=== PATIENT | female | born 1975 | race Caucasian/White ===

== ENCOUNTER 2019-10-20 22:02 | Emergency (ER) | payer BC, SELFPAY ==
--- NOTE | ~2019-10-20 | XR_ITS ---
EXAMINATION: XR chest 1V portable DATE: 10/20/2019 22:48 INDICATION: Cough and fever. Vomiting. TECHNIQUE: A single frontal view of the chest was obtained. COMPARISON: None. FINDINGS: Sensitivity is decreased by obesity. The chest demonstrates clear lungs without pneumonia, pleural effusion, or pneumothorax. The heart size is normal. IMPRESSION: 1. No acute cardiopulmonary disease. Reviewed, dictated and finalized at location A.
[2019-10-20 22:08] VITALS: BP 155/97; PULSE 102; RESP 18; TEMP 36.8; O2SAT 100
[2019-10-20 22:19] VITALS: RESP 18; O2SAT 96
--- NOTE | 2019-10-20 22:44 | WPDEDEXPGENP ---
HPI - General Ped General Chief complaint: Fever Stated complaint: fever, cough, vomiting Time Seen by Provider: 10/20/19 22:14 Source: RN notes reviewed History of Present Illness HPI narrative: Patient presents emergency department from home for cough. Patient states symptoms been ongoing for the past 14 days. has had a cough this been nonproductive. She states that she will go into coughing spells where she will cough nonstop for several minutes. States is been associated with intermittent fever up to 101 with last fever 2 days ago. Patient states over the past 2 days she is also been having vomiting. She denies any rhinorrhea sore throat abdominal pain diarrhea or any other symptoms at this time. Related Data Home Medications Medication Instructions Recorded Confirmed L norgest/e.estradiol-e.estrad 1 tablet PO DAILY 06/21/19 0.10 mg-20 mcg (84)/10 mcg(7) tabs,3mos armodafinil 200 mg tablet 200 mg PO DAILY 06/21/19 cholecalciferol (vitamin D3) 1,250 50,000 unit PO WEEKLY 06/21/19 mcg (50,000 unit) capsule diclofenac sodium 75 mg 75 mg PO BID 06/21/19 tablet,delayed release fenofibrate micronized 134 mg 134 mg PO DAILY 06/21/19 capsule fluticasone propionate 50 2 spray NASAL DAILY 06/21/19 mcg/actuation nasal spray,suspension guanfacine 1 mg tablet 1 mg PO DAILY 06/21/19 levothyroxine 175 mcg tablet 175 mcg PO DAILY 06/21/19 liothyronine 5 mcg tablet 5 mcg PO BID 06/21/19 metformin 500 mg tablet,extended 1,000 mg PO DAILY tablet 06/21/19 release 24 hr hydrochlorothiazide 12.5 mg tablet 12.5 mg PO DAILY 07/31/19 losartan 100 mg tablet 100 mg PO DAILY 07/31/19 carvedilol BID 10/20/19 Allergies Allergy/AdvReac Type Severity Reaction Status Date / Time latex Allergy Severe Hives Verified 10/20/19 22:18 tramadol AdvReac Intermediate SEDATION, Verified 07/31/19 11:00 NAUSEA/VOMITING Pediatric Review of Systems : Review of Systems: Gen.: Denies fevers or chills ENT: Denies congestion Respiratory: Reports cough CV: Denies chest pain or palpitations GI: Denies abdominal pain no diarrhea, reports nausea vomiting denies burning, urgency, frequency or hematuria Musculoskeletal: Denies back pain or muscle pain Neuro: Denies numbness, tingling, weakness or focal weakness Skin: Denies rash Except as documented, all other systems reviewed and negative [facility] Past Medical History Medical History (Updated 10/21/19 @ 02:02 by Patel Lemus DO) Anemia Arthritis Fibromyalgia H/O chronic fatigue syndrome HTN (hypertension) Inflammatory arthritis Migraine Thyroid disease Surgical History Surgical History Delivery by section Hx of cholecystectomy Social History Social History Smoking status: Former smoker Smoking end date: 07/10/10 Alcohol intake: current Pediatric Exam Narrative: Physical exam: APPEARANCE: No acute distress, nontoxic, resting in bed EYES: EOMI HEENT: Normocephalic, atraumatic, OMM RESPIRATORY: No respiratory distress wheezing in the bilateral lung ojeda decreased breath sounds at the bases, no rhonchi or rales CARDIOVASCULAR: Regular rate and rhythm without murmurs rubs or gallops. ABDOMINAL: Soft, nontender, nondistended, no rebound or guarding MUSCULOSKELETAl: Moves all extremities. No clubbing, cyanosis or edema. NEURO: Awake and alert. Following commands, speech normal, no focal deficits SKIN:: Warm, dry. No rashes lesions or abrasions PSYCHIATRIC: Normal affect/mood, Course Course Emergency Course: Patient given albuterol inhaler in ED following this repeat lung exam clear all station bilaterally Discussed with patient results of workup and diagnosis. Discussed need for follow-up with primary care, proper use of medication, and reasons to return to the emergency department. Patient understands and agrees to marguerite
[2019-10-20 23:04] LABS: Basophils Absolute Auto 0.1 K/mm3 (0.0-0.1); Basophils Percent Auto 0.4 % (0.2-1.2); Eosinophils Absolute Auto 0.4 K/mm3 (0-0.3); Eosinophils Percent Auto 3.5 % (0-4.4); Hematocrit 41.1 % (37.0-47.0); Hemoglobin 13.1 g/dL (12.0-15.0); Immature Granulocyte Percent A 0.8 % (0-0.5); Lymphocytes Percent Auto 28.7 % (18.3-44.2); Mean Corpuscular HGB Conc 31.9 g/dl (32-36); Mean Corpuscular Hemoglobin 26.3 pg (26-34); Mean Corpuscular Volume 82.5 fl (80-100); Mean Platelet Volume 10.7 fl (7.4-10.4); Monocytes Absolute Auto 0.6 K/mm3 (0.1-0.6); Monocytes Percent Auto 4.7 % (2.6-8.5); Neutrophils Absolute Auto 7.8 K/mm3 (1.3-6.7); Neutrophils Percent Auto 61.9 % (45.5-73.1); Platelet Count Result 305 k/mm3 (150-375); Red Blood Count 4.98 M/mm3 (4.2-5.4); Red Cell Distribution Width 13.7 % (11.5-14.5); White Blood Count 12.6 K/mm3 (4.5-10.0)
[2019-10-20] MEDS: SODIUM CHLORIDE 0.9% IV 1,000 ML 999 ML IV CONT (23:10)
[2019-10-20] MEDS: methylPREDNISolone SOD SUCC 125 MG VIAL IV PUSH (23:11)
--- NOTE | 2019-10-20 23:17 | PC.NURSE ---
Patient attempted to provide a urine specimen, only able to provide enough for bedside preg test, not enough for UA.
[2019-10-20 23:24] LABS: Alanine Aminotransferase 25 U/L (4-35); Albumin Level 4.2 g/dL (3.5-5.1); Alkaline Phosphatase 83 U/L (38-126); Aspartate Amino Transferase 27 U/L (14-36); Bilirubin,Total 0.3 mg/dL (0.2-1.3); Blood Urea Nitrogen 11 mg/dL (7-17); Calcium 9.3 mg/dL (8.4-10.2); Carbon Dioxide 22 mmol/L (22-30); Chloride 107 mmol/L (98-107); Estimated CRCL calculation 115 ml/min; Estimated Glomerular Filt Rate > 60; Glucose 117 mg/dL (65-105); Potassium 3.2 mmol/L (3.4-5.0); Sodium 140 mmol/L (137-145)
[2019-10-20 23:29] LABS: Lipase 123 U/L (23-300)
[2019-10-20 23:30] VITALS: BP 157/99; PULSE 92; RESP 24; O2SAT 97
[2019-10-20 23:37] VITALS: O2SAT 96
[2019-10-20] MEDS: ALBUTEROL SULFATE (*SP) AEROSOL 1 PUFF 2 PUFF INHALATION (23:57)
[2019-10-21 00:11] VITALS: BP 162/86; PULSE 88; RESP 22; O2SAT 98
[2019-10-21 01:12] LABS: Add Urine Microscopic? NO; Appearance Urine Clear (Clear); Bilirubin Urine Negative (Negative); Blood Urine Negative (Negative); Color Urine Yellow (Yellow); Glucose Urine UA Negative (Negative); Ketones Urine Negative (Negative); Leukocyte Esterase Ur Negative LEU/UL (Negative); Nitrate Urine Negative (Negative); Protein Urine Negative (Negative); Specific Grav Ur 1.026 (1.001-1.035); Urobilinogen Urine Negative mg/dL (<2.0)
[2019-10-21 01:50] VITALS: BP 122/101; PULSE 86; RESP 20; O2SAT 97
--- NOTE | 2019-10-21 01:50 | PC.NURSE ---
Patient swabbed for COVID19 and specimen sent to lab.
[2019-10-21 02:17] VITALS: BP 150/96; PULSE 84; RESP 22; TEMP 36.8; O2SAT 98
[2019-10-24 12:34] LABS: SARS-CoV-2 RNA PCR Negative
--- NOTE | 2019-10-30 00:21 | PC.NURSE ---
Late entry The bag of NS finished infusing at 2333 on 10/20/2019.
== END 2019-10-21 02:19 | disposition home or self-care (01) ==
PROVIDERS: Emergency Provider Emergency Medicine; PCP Family Medicine
DX: J06.9 Acute upper respiratory infection, unspecified (principal); Z20.828 Contact with and (suspected) exposure to other viral communicable diseases; M19.90 Unspecified osteoarthritis, unspecified site; M79.7 Fibromyalgia; I10 Essential (primary) hypertension; E07.9 Disorder of thyroid, unspecified; Z86.2 Personal history of diseases of the blood and blood-forming organs and certain disorders involving the immune mechanism; Z79.84 Long term (current) use of oral hypoglycemic drugs; Z87.891 Personal history of nicotine dependence
CPT/HCPCS: 36415; 71045; 80053; 81003; 81025; 83690; 85025; 87635; 87804; 96361; 96374; 99284; A9270; J2930; J7030; U0002; U0003

== ENCOUNTER 2020-10-09 13:26 | Emergency (ER) | payer BC, SELFPAY ==
--- NOTE | ~2020-10-09 | XR_ITS ---
EXAMINATION: XR hip LT 2V w AP pelvis EXAM DATE: 10/09/2020 15:08 INDICATION: LT hip/groin pain radiates to knee. no injury, 1x week,fibro. TECHNIQUE: Left hip frontal, 'frog leg' projections for interpretation. Frontal projection pelvis. There is no prior study for comparison. FINDINGS: Smooth left hip femoral head contour, no radiographic evidence of avascular necrosis. Ther e is mild symmetric bilateral hip primary osteoarthritis. There are no acute fractures or dislocation s identified. There is no subcutaneous gas. The soft tissue is unremarkable. There are no radiopa que foreign bodies. IMPRESSION: Mild symmetric bilateral hip osteoarthritis. No acute findings. Reviewed, dictated and finalized at location A.
[2020-10-09 14:08] VITALS: BP 156/96; PULSE 92; RESP 20; TEMP 37.2; O2SAT 99
--- NOTE | 2020-10-09 14:49 | ED.LOWEXIN ---
HPI - Extremity Injury (Lower) General Chief Complaint: Extremity Injury, Lower Stated Complaint: back/left hip pain Source: patient and RN notes reviewed Mode of arrival: ambulatory Limitations: no limitations History of Present Illness HPI Narrative: 44-year-old female who presents to [facility] with complaint left hip pain which radiates to her lumbar area and also to groin for the past 1 week duration. Patient states that she has had the left hip pain for the past week and yesterday she started having pain to her left lower back also, denies any injury prior to having discomfort, patient is morbidly obese. Patient states that she had back injury in the past and she had epidural steroid injections to back about 4 years ago, never had any back surgery. MD complaint: other (hip pain left and left lower back) Onset (ago): week(s) (1) Injury: Left: hip (left hip and left lower back) Type of Injury: other (no known injury) Severity: moderate Severity scale (1-10): 7 Relieving factors: nothing Exacerbating factors: weight bearing and movement Other symptoms: none Treatments prior to arrival: NSAIDS Related Data Home Medications Medication Instructions Recorded Confirmed L norgest/E estradiol-E estrad 1 tablet PO DAILY 06/21/19 07/24/20 0.10 mg-20 mcg (84)/10 mcg(7) tabs,3mos cholecalciferol (vitamin D3) 1,250 50,000 unit PO WEEKLY 06/21/19 07/24/20 mcg (50,000 unit) capsule fenofibrate micronized 134 mg 134 mg PO DAILY 06/21/19 07/24/20 capsule fluticasone propionate 50 2 spray NASAL DAILY 06/21/19 07/24/20 mcg/actuation nasal spray,suspension guanfacine 1 mg tablet 1 mg PO DAILY 06/21/19 07/24/20 levothyroxine 175 mcg tablet 175 mcg PO DAILY 06/21/19 07/24/20 liothyronine 5 mcg tablet 5 mcg PO BID 06/21/19 07/24/20 hydrochlorothiazide 12.5 mg tablet 12.5 mg PO DAILY 07/31/19 07/24/20 losartan 100 mg tablet 100 mg PO DAILY 07/31/19 07/24/20 carvedilol BID 10/20/19 07/24/20 liraglutide 0.6 mg/0.1 mL (18 mg/3 0.6 mg SUBCUT DAILY 07/24/20 07/24/20 mL) subcutaneous pen injector bupropion HCl PO 10/09/20 liraglutide [Victoza 2-Hans] mg SUBCUT 10/09/20 Allergies Allergy/AdvReac Type Severity Reaction Status Date / Time latex Allergy Severe Hives Verified 07/24/20 14:51 tramadol AdvReac Intermediate SEDATION, Verified 07/24/20 14:51 NAUSEA/VOMITING Review of Systems Review of Systems: Narrative: CONSTITUTIONAL: Denies fever, chills, or sweats. EYES: Denies visual changes, redness, or discharge. ENT: Denies rhinorrhea, congestion, sore throat, or otalgia. CARDIOVASCULAR: Denies chest pain, palpitations, or acute edema. RESPIRATORY: Denies cough or dyspnea. GASTROINTESTINAL: Denies abdominal pain, nausea, vomiting, or diarrhea. GENITOURINARY: Denies dysuria or hematuria. SKIN: Denies rash or itching. MUSCULOSKELETAL:positive for left lower back pain,left hip joint pain, or myalgia, reports history of arthritis, fibromyalgia, and chronic fatigue syndrome NEUROLOGIC: Denies headache, numbness, or weakness. PSYCHIATRIC: Denies anxiety or depression. All systems reviewed & are unremarkable except as noted in HPI and below PMFSH Past Medical History Medical History (Updated 10/14/20 @ 12:22 by Ema Vickers NP) Anemia Arthritis Asthma CHF (congestive heart failure) Diabetes Fibromyalgia H/O chronic fatigue syndrome HTN (hypertension) Inflammatory arthritis Migraine Thyroid disease Surgical History Surgical History (Updated 10/14/20 @ 12:09 by Ema Vickers NP) Delivery by section History of appendectomy History of arthroscopy of left knee Hx of arthroscopy of right knee Hx of cholecystectomy Family History Family History Mother Hypertension Father Family hx of alcoholism Hypertension Hypothyroidism COPD (chronic obstructive pulmonary disease) Social History Social History (Updated 10/14/20 @ 12:11 by Estela
== END 2020-10-09 15:35 | disposition home or self-care (01) ==
PROVIDERS: Emergency Provider Registered Nurse; PCP Family Medicine
DX: M16.0 Bilateral primary osteoarthritis of hip (principal); M79.7 Fibromyalgia; I10 Essential (primary) hypertension; Z87.891 Personal history of nicotine dependence
CPT/HCPCS: 73502; 99213; G0463

== ENCOUNTER 2020-11-13 06:34 | Outpatient (CLI) | payer BC, SELFPAY ==
--- NOTE | ~2020-11-13 | MR_ITS ---
EXAMINATION: MR hip LT wo con DATE: 11/13/2020 07:45 INDICATION: Left hip pain TECHNIQUE: Magnetic resonance imaging (MRI) of the left hip was performed without intravenous contra st. Sequences included full-field axial PD-weighted FS FSE and T1-weighted FSE, coronal of the pelvis with PD-weighted FS FSE, T1-weighted FSE and T2-weighted FSE. Small field of view of the left hip w ith axial PD-weighted FS FSE, sagittal PD-weighted FS FSE, coronal PD weighted FS FSE and coronal T2- weighted FSE. Additional radial T1-weighted FGR oriented orthogonal to the acetabular rim were obtain ed for evaluation of the labrum. COMPARISON: None FINDINGS: Bones/labrum/cartilage: Alignment is normal. No fracture, avascular necrosis or pathologic marrow replacing process. Labrum is normal. Articular cartilage is normal. Fluid: Symmetric physiologic amount of fluid within both hip joints. Soft tissues: Normal and symmetric muscle bulk and signal in the pelvis and visualized proximal thighs. The gluteal and proximal hamstring tendons are normal. Mild tendinopathy of the psoas portion of the distal ilio psoas tendon complex. There is feathery edema in the distal portion of the iliac is muscle with parti al tear of the lesser trochanteric myotendinous attachment of the iliac is portion of the iliopsoas t endon complex. The right iliopsoas tendon complex is normal. Limited evaluation of visceral organs of the pelvis is unremarkable. No pathologically enlarged pelvic/inguinal lymphadenopathy. IMPRESSION: 1. Mild tendinopathy of the distal psoas tendon and mild tendinopathy and partial tear at the lesser trochanteric myotendinous insertion of the iliacus component of the iliopsoas tendon complex. Reviewed, dictated and finalized at location A. IMPRESSION: 1. Mild tendinopathy of the distal psoas tendon and mild tendinopathy and parti al tear at the lesser trochanteric myotendinous insertion of the iliacus compon ent of the iliopsoas tendon complex.
== END 2020-11-13 06:35 | disposition home or self-care (01) ==
PROVIDERS: PCP Family Medicine; Visit Provider Orthopaedic Surgery
DX: M25.552 Pain in left hip (principal); M76.12 Psoas tendinitis, left hip
CPT/HCPCS: 73721

== ENCOUNTER 2021-12-15 12:29 | Emergency (ER) | payer BC, SELFPAY ==
[2021-12-15 12:32] VITALS: BP 128/78; PULSE 78; RESP 20; TEMP 36.8; O2SAT 100
--- NOTE | 2021-12-15 13:21 | ED.WOUNDLAC ---
HPI - Wound/Laceration General Chief Complaint: Wound/Laceration Stated Complaint: left leg pain Time Seen by Provider: 12/15/21 12:43 History of Present Illness HPI narrative: 46-year-old female presents the emergency room for evaluation of a draining abscess to her left inner thigh. Patient states that she was seen at urgent care yesterday for same complaint. Wound was cultured at that time patient was started on oral and topical antibiotics. Patient states that she was seen in the orthopedist office today for a joint injection, when the nurse practitioner told her she needed to come straight to the emergency room to have her abscess debrided. Patient states that the redness around her wound has receded and has to denied any streaking. Patient denies fever Related Data Home Medications Medication Instructions Recorded Confirmed L norgest/E estradiol-E estrad 1 tablet PO DAILY 06/21/19 07/24/20 0.10 mg-20 mcg (84)/10 mcg(7) tabs,3mos (Amethia Lo) cholecalciferol (vitamin D3) 1,250 50,000 unit PO WEEKLY 06/21/19 07/24/20 mcg (50,000 unit) capsule fenofibrate micronized 134 mg 134 mg PO DAILY 06/21/19 07/24/20 capsule fluticasone propionate 50 2 spray intranasal DAILY 06/21/19 07/24/20 mcg/actuation nasal spray,suspension guanfacine 1 mg tablet 1 mg PO DAILY 06/21/19 07/24/20 levothyroxine 175 mcg tablet 175 mcg PO DAILY 06/21/19 07/24/20 (Synthroid) liothyronine 5 mcg tablet 5 mcg PO BID 06/21/19 07/24/20 hydrochlorothiazide 12.5 mg tablet 12.5 mg PO DAILY 07/31/19 07/24/20 losartan 100 mg tablet 100 mg PO DAILY 07/31/19 07/24/20 carvedilol 25 mg tablet BID 10/20/19 07/24/20 liraglutide 0.6 mg/0.1 mL (18 mg/3 0.6 mg subcut DAILY 07/24/20 07/24/20 mL) subcutaneous pen injector (My1loginza 2-Hans) bupropion HCl 150 mg tablet,12 hr PO 10/09/20 sustained-release liraglutide 0.6 mg/0.1 mL (18 mg/3 mg subcut 10/09/20 mL) subcutaneous pen injector (Victoza 2-Hans) Allergies Allergy/AdvReac Type Severity Reaction Status Date / Time latex Allergy Severe Hives Verified 12/15/21 12:36 tramadol AdvReac Intermediate SEDATION, Verified 12/15/21 12:36 NAUSEA/VOMITING Review of Systems Review of Systems: CONSTITUTIONAL: Denies fever, chills, or sweats. EYES: Denies visual changes, redness, or discharge. ENT: Denies rhinorrhea, congestion, sore throat, or otalgia. CARDIOVASCULAR: Denies chest pain, palpitations, or edema. RESPIRATORY: Denies cough or dyspnea. GASTROINTESTINAL: Denies abdominal pain, nausea, vomiting, or diarrhea. GENITOURINARY: Denies dysuria or hematuria. SKIN: Reports abscess to left inner thigh MUSCULOSKELETAL: Denies back pain, joint pain, or myalgia. NEUROLOGIC: Denies headache, numbness, dizziness, or weakness. PSYCHIATRIC: Denies anxiety or depression. [facility] Past Medical History Medical History Anemia Arthritis Asthma CHF (congestive heart failure) Diabetes Fibromyalgia H/O chronic fatigue syndrome HTN (hypertension) Inflammatory arthritis Migraine Thyroid disease Surgical History Surgical History Delivery by section History of appendectomy History of arthroscopy of left knee Hx of arthroscopy of right knee Hx of cholecystectomy Family History Family History Mother Hypertension Father Family hx of alcoholism Hypertension Hypothyroidism COPD (chronic obstructive pulmonary disease) Social History Social History Smoking status: Former smoker Smoking end date: 07/10/10 Alcohol intake: current Alcohol use details: rare Substance use: never Gender identity (if verbalized by the patient): Female Exam Narrative: GENERAL: Well-appearing, well-nourished, and in no acute distress. HEAD: Normocephalic, atraumatic.
[2021-12-15 13:44] VITALS: BP 132/79; PULSE 69; RESP 17; O2SAT 100
== END 2021-12-15 13:46 | disposition home or self-care (01) ==
PROVIDERS: Emergency Provider Nurse Practitioner Family; PCP Family Medicine
DX: L02.416 Cutaneous abscess of left lower limb (principal); I50.9 Heart failure, unspecified; E11.9 Type 2 diabetes mellitus without complications; I11.0 Hypertensive heart disease with heart failure; E07.9 Disorder of thyroid, unspecified; R53.82 Chronic fatigue, unspecified; M19.90 Unspecified osteoarthritis, unspecified site; Z86.2 Personal history of diseases of the blood and blood-forming organs and certain disorders involving the immune mechanism; Z87.891 Personal history of nicotine dependence; Z79.899 Other long term (current) drug therapy
CPT/HCPCS: 99283

== ENCOUNTER 2022-09-04 13:34 | Emergency (ER) | payer BC, SELFPAY ==
--- NOTE | ~2022-09-04 | CT_ITS ---
EXAMINATION: CT orbit BI w con DATE: 09/04/2022 18:03 INDICATION: redness, swelling, pain with EOMs . TECHNIQUE: Computed tomography (CT) of the facial bones and maxillofacial region was performed withou t intravenous contrast. Automated exposure control and iterative reconstruction technique were employ ed. The dose-length product was 272.53 mGy-cm. COMPARISON: None. FINDINGS: Soft Tissues: Fat stranding and apparent soft tissue swelling/edema along the eyelids and superior/i nferior margins of the orbits. Facial bones: No acute fracture. No lytic or blastic process. Eyes: The globes are intact. Symmetric anterior chambers. Normal appearing bilateral lenses. Inflamm atory changes in the bilateral preseptal fat. Optic nerves and extraocular muscles are symmetric with out abnormal enhancement. Normal intraorbital vessels. No intraorbital fluid collection. Paranasal Sinuses: The visualized aerated spaces are clear. Foreign Bodies: No radiopaque foreign bodies. Other Findings: None. IMPRESSION: Soft tissue inflammatory changes involving the bilateral preseptal spaces and periorbital tissues, wh ich may represent periorbital cellulitis in the appropriate clinical context. Reviewed, dictated and finalized at location K. MECHANIC IMPRESSION: Soft tissue inflammatory changes involving the bilateral preseptal spaces and p eriorbital tissues, which may represent periorbital cellulitis in the appropria te clinical context.
[2022-09-04 13:46] VITALS: BP 122/87; PULSE 78; RESP 16; TEMP 37.1; O2SAT 98
[2022-09-04 15:41] VITALS: BP 132/85; PULSE 85; RESP 18; O2SAT 99
--- NOTE | 2022-09-04 17:07 | ED.EYEPROB ---
HPI - Eye Problem General Chief complaint: Eye Problems Stated complaint: eye problems Time Seen by Provider: 09/04/22 16:56 History of Present Illness HPI Narrative: Patient is a 46-year-old female with a history of diabetes, fibromyalgia, here for evaluation of bilateral eye swelling and pain over the past day. Patient states that she woke up with a lesion on her nose bridge that was red and inflamed. She additionally had bilateral eye crusting. since waking up this morning, the redness has spread laterally around her orbits and into her forehead. She notes pain at the site of the lesion in addition to a deep pain in both of her eyes that is worse with eye movements. This morning she had some blurry vision which has since resolved. She was seen in urgent care this morning who referred her to the ED for IV antibiotics. Patient states her swelling and pain has actually improved since this morning. She wears glasses. Related Data Home Medications Medication Instructions Recorded Confirmed L norgest/E estradiol-E estrad 0.1 1 tablet PO DAILY 06/21/19 07/24/20 mg-20 mcg (84)/10 mcg (7) tabs,3mos (Amethia Lo) cholecalciferol (vitamin D3) 1,250 50,000 unit PO WEEKLY 06/21/19 07/24/20 mcg (50,000 unit) capsule fenofibrate micronized 134 mg 134 mg PO DAILY 06/21/19 07/24/20 capsule fluticasone propionate 50 2 spray intranasal DAILY 06/21/19 07/24/20 mcg/actuation nasal spray,suspension guanfacine 1 mg tablet 1 mg PO DAILY 06/21/19 07/24/20 levothyroxine 175 mcg tablet 175 mcg PO DAILY 06/21/19 07/24/20 (Synthroid) liothyronine 5 mcg tablet 5 mcg PO BID 06/21/19 07/24/20 hydrochlorothiazide 12.5 mg tablet 12.5 mg PO DAILY 07/31/19 07/24/20 losartan 100 mg tablet 100 mg PO DAILY 07/31/19 07/24/20 carvedilol 25 mg tablet BID 10/20/19 07/24/20 liraglutide 0.6 mg/0.1 mL (18 mg/3 0.6 mg subcut DAILY 07/24/20 07/24/20 mL) subcutaneous pen injector (Victoza 2-Hans) bupropion HCl 150 mg tablet,12 hr PO 10/09/20 sustained-release liraglutide 0.6 mg/0.1 mL (18 mg/3 mg subcut 10/09/20 mL) subcutaneous pen injector (Victoza 2-Hans) Allergies Allergy/AdvReac Type Severity Reaction Status Date / Time latex Allergy Severe Hives Verified 09/04/22 13:51 Review of Systems Review of Systems: Gen: Denies fevers or chills Eyes: Reports bilateral eye pain and blurry vision this morning. ENT: Denies congestion Respiratory: Denies shortness of breath or cough CV: Denies chest pain or palpitations GI: Denies abdominal pain nausea, emesis or diarrhea : denies burning, urgency, frequency or hematuria Musculoskeletal: Denies back pain or muscle pain Neuro: Denies numbness, tingling, weakness or focal weakness Skin: Reports redness and swelling to bilateral eyes and a lesion to the nose bridge. Except as documented, all other systems reviewed and negative [facility] Past Medical History Medical History Anemia Arthritis Asthma CHF (congestive heart failure) Diabetes Fibromyalgia H/O chronic fatigue syndrome HTN (hypertension) Inflammatory arthritis Migraine Thyroid disease Surgical History Surgical History Delivery by section History of appendectomy History of arthroscopy of left knee Hx of arthroscopy of right knee Hx of cholecystectomy Family History Family History Mother Hypertension Father Family hx of alcoholism Hypertension Hypothyroidism COPD (chronic obstructive pulmonary disease) Social History Social History Smoking status: Former smoker Smoking end date: 07/10/10 Alcohol intake: current Alcohol use details: rare Substance use: never Living arrangements: with family Gender identity (if verbalized by the patient): Female Exam Narrat
[2022-09-04 17:25] LABS: Basophils Percent Auto 0.3 % (0.2-1.2); Eosinophils Absolute Auto 0.3 K/mm3 (0-0.3); Eosinophils Percent Auto 2.9 % (0-4.4); Hematocrit 37.5 % (37.0-47.0); Hemoglobin 12.2 g/dL (12.0-15.0); Immature Granulocyte Absolute 0.05 K/mm3 (0.00-0.031); Immature Granulocyte Percent A 0.4 % (0-0.5); Lymphocytes Absolute Auto 3.16 K/mm3 (0.9-3.2); Lymphocytes Percent Auto 27.6 % (18.3-44.2); Mean Corpuscular HGB Conc 32.5 g/dl (32-36); Mean Corpuscular Hemoglobin 26.9 pg (26-34); Mean Corpuscular Volume 82.8 fl (80-100); Mean Platelet Volume 10.8 fl (7.4-10.4); Monocytes Absolute Auto 0.6 K/mm3 (0.1-0.6); Monocytes Percent Auto 5.3 % (2.6-8.5); Neutrophils Absolute Auto 7.3 K/mm3 (1.3-6.7); Neutrophils Percent Auto 63.5 % (45.5-73.1); Platelet Count Result 260 k/mm3 (150-375); Red Blood Count 4.53 M/mm3 (4.2-5.4); Red Cell Distribution Width 15.3 % (11.5-14.5); White Blood Count 11.5 K/mm3 (4.5-10.0)
[2022-09-04 17:38] LABS: Lactic Acid Reflex 1.1 mmol/L (0.7-2.0)
[2022-09-04 17:40] LABS: Estimated CRCL calculation 102 ml/min; Estimated Glomerular Filt Rate > 60
[2022-09-04 17:41] LABS: Anion Gap 7 mmol/L (8-16); Blood Urea Nitrogen 18 mg/dL (7-17); Carbon Dioxide 29 mmol/L (22-30); Chloride 101 mmol/L (98-107); Estimated CRCL calculation 102 ml/min; Estimated Glomerular Filt Rate > 60; Glucose 94 mg/dL (65-110); Potassium 3.3 mmol/L (3.4-5.0); Sodium 137 mmol/L (137-145)
[2022-09-04 17:44] LABS: CRP 1.8 mg/dL (<1.0)
[2022-09-04] MEDS: TETRACAINE HCL 0.5% OPHTH SOLN 4 ML BTL 1 DROP EACH EYE (17:47)
[2022-09-04] MEDS: FLUORESCEIN SOD 1 MG/STRIP EACH EYE (17:47)
[2022-09-04 18:39] LABS: Erythrocyte Sedimentation Rate 49 mm/hr (0-20)
== END 2022-09-04 19:10 | disposition home or self-care (01) ==
PROVIDERS: Emergency Provider Physician Assistant; PCP Family Medicine
DX: L03.213 Periorbital cellulitis (principal); J45.909 Unspecified asthma, uncomplicated; I50.9 Heart failure, unspecified; I11.0 Hypertensive heart disease with heart failure; E11.9 Type 2 diabetes mellitus without complications; E07.9 Disorder of thyroid, unspecified; M79.7 Fibromyalgia; M19.90 Unspecified osteoarthritis, unspecified site; Z86.2 Personal history of diseases of the blood and blood-forming organs and certain disorders involving the immune mechanism; Z87.891 Personal history of nicotine dependence; Z79.85 Long-term (current) use of injectable non-insulin antidiabetic drugs
CPT/HCPCS: 36415; 70481; 80048; 82565; 83605; 85025; 85652; 86140; 96365; 96367; 96368; 99284; J0131; J0696; J3370; Q9967

== ENCOUNTER 2025-01-09 18:36 | Emergency (ER) | payer BC, SELFPAY ==
--- OUTSIDE RECORDS SUMMARY | 2025-01-09 18:38 | XMS_ITS | Clinical Summary ---
Author Organization [facility] Address [address] [place] [id number] Care Team Providers Care Line Producer Name Role Phone Mariya Miguel MD Primary Care Provider [phone] Social History Tobacco Use Types Packs/Day Years Used Date Smoking Tobacco: Never Assessed Comments Unknown Sex and Gender Information Value Date Recorded Sex Assigned at Not on file Legal Sex Female 8:04 PM CDT Gender Identity Not on file Sexual Orientation Not on file Plan of Treatment Health Maintenance Due Date Last Done Comments Cervical Cancer Screening Pa p Smear (Age 30 to 64) Every 3 Years 1975 Colorectal Cancer Screening Colonoscopy (10 Years) 1975 Annual Physical 10/20/1978 Hepatitis C 10/20/1993 DTaP, Tdap and Td Vaccines ( 1 - Tdap) 10/20/1994 Hepatitis B Vaccines (1 of 3 - 19+ 3-dose series) 10/20/1994 Cervical Cancer Screening Pa p with HPV Testing (Age 30 to 64) Every 5 Years 10/20/2005 Cervical Cancer Screening with HPV 10/20/2005 Mammogram Screening 2015 COVID-19 Vaccine ( - 2023-2 5 season) 2024 Meningococcal B Vaccine Aged Out No l onger eligible based on patient's age to complete this topic Meningococcal Vaccine Aged Out No rocky joo eligible based on patient's age to complete this topic Pneumococcal Vaccine: Pediat rics (0 to 5 Years) and At-Risk Patients (6 to 49 Years) Aged Out No longer eligible b ased on patient's age to complete this topic RSV Immunizations Under 20 Months Aged Out No longer eligible based on patient's age to complete this topic Insurance [facility] Care Teams Line Producer Relationship Specialty Start Date End Date Mariya Miguel MD [address] [place] [address] PCP - General FAMILY PRACTICE 06/28/18
--- OUTSIDE RECORDS SUMMARY | 2025-01-09 18:39 | XMS_ITS | Clinical Summary ---
Author Organization [facility] Care Team Providers Care Deputy Chief Sheriff Name Role Phone Unavailable Primary Care Provider Unavailabl e Social History Tobacco Use Types Packs/Day Years Used Date Smoking Tobacco: Never Assessed Comments Unknown Sex and Gender Information Value Date Recorded Sex Assigned at Not on file Legal Sex Female 1:05 PM [employer] Gender Identity Not on file Sexual Orientation Not on file Plan of Treatment Health Maintenance Due Date Last Done Comments Hepatitis C Virus (HCV) Screening 1975 TdaP Immunization 1975 Hepatitis B Immunization (1 of 3 - 19+ 3-dose series) 10/20/1994 Pap Smear 10/20/1996 Cervical Cancer Screening (CCS) 10/20/2005 HPV/Cotest 10/20/2005 Discussion re Starting/Frequency of Mammograms 2015 Colonoscopy 10/20/2020 Colorectal Cancer Screening 10/20/2020 Influenza Immunization (#1) 03/10/202407/2020, 05/08/2020, 04/02/2019, Additional history exists SARS-COV-2 Immunization ( season) 2024 07/20/2020, 06/27/2020 Respiratory Syncytial Virus (RSV) Immunization (Adult) (1 - 1-dose 75+ series) 10/20/2050 Meningococcal Immunization (ACWY) Aged Out No longer eligible based on patient's age to complete this topic Pneumococcal Immunization Combined Aged Out No longer eligible based on patient's age to complete this topic Rotavirus Immunization Aged Out No lo nger eligible based on patient's age to complete this topic
--- OUTSIDE RECORDS SUMMARY | 2025-01-09 18:39 | XMS_ITS | Clinical Summary ---
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 Active FLUNISOLIDE BOTH NOSTRIL Administer in each nostril daily. Active DULoxetine (CYMBALTA) 30 mg Capsule, Delayed Release(E.C.) Take 30 mg by mouth 3 times daily. Active levothyroxine 175 mcg tablet Take 175 mcg by mouth daily in the morning. Active metFORMIN (GLUCOPHAGE) 500 mg tablet Take 500 mg by mouth 2 times daily with meals. Active diclofenac sodium (VOLTAREN) 75 mg Tablet, Delayed Release (E.C.) Take 75 mg by mouth 2 times daily. Active losartan (COZAAR) 100 mg tablet Take 100 mg by mouth daily. Active liothyronine (CYTOMEL) 5 mcg Tablet Take 5 mcg by mouth daily. Active buPROPion HCL (WELLBUTRIN SR) 150 mg Sustained Release 12 hour tablet Take 150 mg by mouth 2 times daily. Active fenofibrate micronized (LOFIBRA) 134 mg Capsule Take 134 mg by mouth daily. Active carvediloL (COREG) 25 mg tablet Take 25 mg by mouth 2 times daily with meals. Active HYDROcodone-bethanie taminophen (NORCO) 5-325 mg tablet Take 1 Tablet by mouth every 4 hours as needed for Pain, Moderate. Active cholecalciferol 1,250 mcg (50,000 unit) Capsule Take 50,000 Units by mouth every 7 days. 1 capsule per week 1 & 3 2 capsule week 2&4 Active Social History Tobacco Use Types Packs/Day Years Used Date Smoking Tobacco: Former Cigarettes 2007 Smokeless Tobacco: Never Alcohol Use Standard Drinks/Week Comments Yes 0 (1 standard drink = 0.6 oz pur e alcohol) very rarely Comments No Sex and Gender Information Value Date Recorded Sex Assigned at Not on file Legal Sex Female 2:19 PM CDT Gender Identity Not on file Sexual Orientation Not on file Last Filed Vital Signs Vital Sign Reading Time Taken Comments Blood Pressure 137/108 04/20/2021 8:51 AM CDT Pulse 71 04/20/2021 8:51 AM CDT Temperature 36.3 C (97.3 F) 03/19/2021 9:34 AM CDT Respiratory Rate 19 03/19/2021 9:45 AM CDT Oxygen Saturation 91% 04/20/2021 8:51 AM CDT Inhaled Oxygen Concentration - - Weight 145.2 kg (320 lb) 04/30/2021 10:48 AM CDT Height 163.8 cm (5' 4.5) 04/30/2021 10:48 AM CD T Body Mass Index 54.08 04/30/2021 10:48 AM CDT Plan of Treatment Health Maintenance Due Date Last Done Comments DIABETES ANNUAL FOOT EXAM 10/20/1993 DIABETES ANNUAL RETINAL EXAM 10/20/1993 DIABETES HBA1C Q 6 MONTHS 10/20/1993 DIABETES MICROALBUMIN ANNUAL SCREEN 10/20/1993 LDL CHOLESTEROL ANNUAL 10/20/1993 DTAP/TDAP/TD VACCINES (1 - Tdap) 10/20/1994 HEPATITIS B VACCINES (1 of 3 - 19+ 3-dose series) 10/08 HPV/Cotest (21-29) 10/20/1996 CERVICAL CANCER SCREENING 10/20/2005 HPV/Cotest (30-65) 10/20/2005 PAP SMEAR 10/20/2005 BREAST CANCER SCREENING 2015 COLORECTAL SCREENING 10/20/2020 Colorectal Cancer Screening 10/20/2020 FIT-DNA Q 3 years 10/20/2020 FIT/FOBT Q 1 year 10/20/2020 Flex Sig/CT Colonography Q 5 years 10/20/2020 INFLUENZA VACCINE (#1) 2025 05/08/2020 Insurance [facility] BLUE ACCESS/TRUE BLUE PPO
--- OUTSIDE RECORDS SUMMARY | 2025-01-09 18:39 | XMS_ITS | Clinical Summary ---
Author Organization [facility] Address [address] [place] [address] Care Team Providers Care Clinical Biostatistics Director Name Role Phone Mariya King MD Primary Care Provider [phone] Allergies Active Allergy Reactions Criticality Noted Date Comments Hydrocodone Bitartrate Rash Medium 01/18/2005 Metformin Tramadol Medications fluticasone (FLONASE) 50 mcg/actuation nasal spray [address] (VOLTAREN) 75 mg EC tablet Take 1 tablet (75 mg total) by mouth 2 (two) times a day 2 8 Active VITAMIN D2 50,000 unit capsule Take 1 capsule (50,000 Units total) by mouth Take 1 tab po on weeks one and three and 2 tabs po on weeks two and four 2 8 Active L-norgest/e.estr adiol-e.estrad (AMETHIA LO ORAL) Take by mouth daily Active levothyroxine sodium (LEVOTHYROXINE ORAL) Take 150 mcg by mouth daily Active DULoxetine DR (CYMBALTA) 60 mg capsule Take 1 capsule (60 mg total) by mouth 2 (two) times a day Active Mounjaro 12.5 mg/0.5 mL pen injector Inject 12.5 mg every week by subcutaneous route. 4 Active carvediloL (COREG) 25 mg tabletIndication s:Essential hypertension TAKE 1 TABLET BY MOUTH TWICE DAILY WITH MEALS 60 tablet 7 4 Active losartan-hydroCH LOROthiazide (HYZAAR) 100-12.5 mg per tabletIndication s:Essential hypertension Take 1 tablet by mouth once daily 90 tablet Active Active Problems Problem Noted Date Diagnosed Date Fibromyalgia 03/22/2019 Chronic fatigue 12/08/2017 Hypertensive heart disease w ith chronic diastolic congestive heart failure 12/08/2017 SHIRLEY on CPAP 12/08/2017 Palpitations 12/08/2017 Essential hypertension 12/08/2017 Acquired hypothyroidism 12/08/2017 Morbid obesity with BMI of 50.0-59.9, adult 07/2017 SOB (shortness of breath) 12/08/2017 Medical History Medical History Date Comments Hx Other Medical Back pain Hx Other Medical High Cholestero l Hx Other Medical Right knee meni scal repair 2012 Family History Medical History Relation Name Comments COPD Father Hypertension Father Hypertension Mother Arthritis Other 1 Family history of Arthritis; Diabetes Other 2 Family history of Diabetes mellitus; Hypertension Other 3 Family history of Hypertension; Mental illness Other 4 Family histor y of Mental illness; Lung disease Other 5 Family history of Lung problems; Relation Name Status Comments Father Alive Mother Alive Other 1 Other 2 Other 3 Other 4 Other 5 Social History Tobacco Use Types Packs/Day Years Used Date Smoking Tobacco: Former Cigarettes Q uit: 2009 Smokeless Tobacco: Never Alcohol Use Standard Drinks/Week Comments Yes 0 (1 standard drink = 0.6 oz pur e alcohol) RARELY Comments Unknown Sex and Gender Information Value Date Recorded Sex Assigned at Not on file Legal Sex Female 11:58 PM STORE PRODUCT DEMONSTRATOR Gender Identity Female 08/23/2021 4:44 PM STORE PRODUCT DEMONSTRATOR Sexual Orientation Straight 08/23/2021 4: 44 PM STORE PRODUCT DEMONSTRATOR Obstetrics History Last Filed Vital Signs Vital Sign Reading Time Taken Comments Blood Pressure 122/62 09/15/2023 3:20 PM STORE PRODUCT DEMONSTRATOR Pulse 86 09/15/2023 3:20 PM STORE PRODUCT DEMONSTRATOR Temperature 37 C (98.6 F) 11/28/2017 2:19 PM CDT Respiratory Rate 18 12/08/2017 3:07 PM CDT Oxygen Saturation 98% 09/15/2023 3:20 PM STORE PRODUCT DEMONSTRATOR Inhaled Oxygen Concentration - - Weight 138.9 kg (306 lb 4.8 oz) 09/15/2023 3:20 PM STORE PRODUCT DEMONSTRATOR Height 167.6 cm (5' 6) 09/15/2023 3:20 PM STORE PRODUCT DEMONSTRATOR Body Mass Index 49.44 09/15/2023 3:20 PM STORE PRODUCT DEMONSTRATOR Plan of Treatment Health Maintenance Due Date Last Done Comments Breast Cancer Screening-Mammogram 1975 Cervical Cancer Screening 1975 Colon Cancer Screening-Colonoscopy 1975 Depression Screening 1975 Hepatitis C Screening 1975 DTaP/Tdap/Td Vaccine (1 - Tdap) 10/20/1986 Hepatitis B Screening 10/20/1993 Regular Well Visit/Exam 18-64 10/20/1993 Pneumococcal vaccine <65 (1 of 2 - PCV) 10/20/1994 Covid-19 Vaccine (2023-2 5 season) 2024 08/19/2021, 10/05/2020, 09/21/2020, Additional history exists Influenza Vaccine (Season Ended) 2025 05/08/2020, 04/02/2019, 05/28/2016, Additional history exists [place] [employer] [place] [employer] [place] Care Teams Clinical Biostatistics Director Relationship Specialty Start Date End Date Mariya King MD [facility] [place] [address] PCP - General Family Medicine 11/30/17
--- OUTSIDE RECORDS SUMMARY | 2025-01-09 18:39 | XMS_ITS | Patient Health Record ---
[facility] Organization [facility] Address [address] [place] [address] Care Team Providers Care Shopfitter Name Role Phone Sam Ennis Primary Care Provider Reason For Referral No Information Immunizations Vaccine Route Administration Date Status Comme nts COVID-19 Moderna Booster IM Intramuscular 08/19/2021 Administered Patient tolerat ed well. COVID-19 Vaccine Pfizer 2ND IM Intramuscular 06/27/2020 Administered EUA dated: 06/2020. Last Repairer: [facility]. Patient tolerated well. COVID-19 Vaccine Pfizer 2ND IM Intramuscular 07/20/2020 Administered EUA provided. Screening reviewed and consent signed. Pt tolerated well. Plan Of Treatment No Information Insurance Providers Payer Name Payer Address Payer Phone Subscriber Number Group Number Insured Name Patient Relationship to Insured Coverage Start Date Coverage End Date [facility] [address] [place] [address] [id number] Morena Marks Self - patient is the insured 0
--- OUTSIDE RECORDS SUMMARY | 2025-01-09 18:39 | XMS_ITS | Data Portability ---
Author Organization [place] [facility], Main Office Address [address] [place] [address] Care Team Providers Care Assistant Food Service Manager Name Role Phone SHIVAM BRUNNER Primary Care Provider SHIVAM BRUNNER Referring Provider Assessment Encounter Date Assessment Date Assessment LastModified by Organization Details LastModified Time 07/05/2023 07/05/2023 HPI: Patient returns. She is here for cortisone injection right knee. Last shot was 3 months ago. Shots work well for about 2 months. She has severe medial compartments osteoarthritis in the right. She continues working on getting her weight down. To for she has lost about 80 lb and continues to get it further down. She will need to have her weight under 220 lb for her BMI to be under 40 to discuss surgery on the knee we talked about that as well today. She did want a cortisone injection today Physical exam: 47-year-old female alert pleasant. She walks with a mild limp today. She has mild effusion right knee. Range motion is from 5-125 degrees. There is no increased swelling in either lower extremity. Mild tenderness over the medial joint line palpation. After ChloraPrep used on skin 20 mg Kenalog and 3 cc of 0.5% ropivacaine was injected into the right knee. Impression: 47-year-old female who has severe medial compartment osteoarthritis the right knee. I will see her in 3 months repeat injection. Not available 07/05/2023 09:56:27 10/23/2023 10/23/2023 HPI: Patient returns. It has been 3 months since her last cortisone injection in the right knee. She has severe medial compartment osteoarthritis. She is gets about 2 months relief from injections. She has not a surgical candidate due to her weight. She wished to have another injection today. She remains on diclofenac 75 mg b.i.d.. Physical exam: 48-year-old female alert pleasant. She walks well without limp or assistance. She has a mild effusion in the right knee. Range motion is from 0-125 degrees. Moderate tenderness over the medial joint line to palpation. After alcohol prep 20 mg Kenalog and 3 cc of 0.5% ropivacaine was injected into the right knee. Impression: 48-year-old female who has severe medial compartment osteoarthritis the right knee. She continues get relief from the injections. We will see her in 3 months. Not available 10/23/2023 15:28:28 04/29/2024 04/29/2024 Time spent with patient included: preparing to see patient by reviewing tests, obtaining and reviewing history, medical examination and evaluation, counseling and educating the patient, ordering medications and tests, documenting clinical information in EHR, independently interpreting results and communicating results to the patient for a total of 43 minutes. [email or web address] Not available 04/30/2024 08:53:38 Plan of Treatment Reminders Order Date Submit Date Provider Last Modified By Organization Details Last Modified Time Details Appointments None recorded. Lab gamma-gluta myl transferase (ggt), serum [address] (Lab), [address] [place] [address], [address], 4 08:18:12 hepatitis panel (A+B+C), acute, serum [address] (Lab), [address] [place] [address], [address], 4 08:18:12 amylase, serum or plasma [address] (Lab), [address] [place] [address], [address], 4 08:18:12 Referral gynecologis t referral - Please call patient to schedule an appointment . Thank you. 2023 024 [email or web address] Alex Grove MD, [address], [place], [address], 4 08:46:56 Procedures injection/a spiration joint/bursa (PROC) - in office procedure, administere d by provider 2023 024 [email or web address] In-Office Order, Internal Use Only DO Not Attach Compendium DO Not Attach Compendium, Do Not Delete/merge, [id number] 4 15:14:03 injection/a spiration joint/bursa (PROC) - in office procedure, administere d by provider 2022 023 [email or web address] In-Office Order, Internal Use Only DO Not Attach Compendium DO Not Attach Compendium, Do Not Delete/merge, [id number] 3 09:39:14 Surgeries None recorded. Imaging MAMMO, screening, digital, bilateral 2023 024 [email or web address] [address] [facility], [address] [place] [address] , [place], [address], 4 09:06:09 US, liver 2023 024 [email or web address] 256 [facility], [address] [place] [address] , [place], [address], 4 09:01:13 Medication Orders nortriptyli ne 10 mg capsule 2023 024 [facility], [address] [facility], [place], [address], 4 15:38:28 buspirone 5 mg tablet 2023 024 [facility], [address] [facility], [place], [address], 4 15:40:15 Depo-Medrol 80 mg/mL suspension for injection 2023 024 [email or web address] Not available 4 13:00:06 prednisone 20 mg tablet [address], [address] [place] [address], [address], 4 16:22:25 Mounjaro 15 mg/0.5 mL subcutaneou s pen injector [address], [address] [place] [address], [address], 4 16:22:09 ondansetron 4 mg disintegrat ing tablet 2023 024 [email or web address] 200 [facility] 361, [address] [place] [address], [address], 4 12:52:49 Kenalog 10 mg/mL suspension for injection 2023 024 [facility] [place] [address] [address], [address] [place] [address], [address], 5 12:16:39 Marcaine 0.5 % (5 mg/mL) injection solution [address], [address] [place] [address], [address], 4 15:28:45 Kenalog 10 mg/mL suspension for injection 2022 023 [facility] [place] [address] [address], [address] [place] [address], [address], 5 12:16:39 ropivacaine (PF) 5 mg/mL (0.5 %) injection solution 2022 023 [place] [address], [address] [place] [address], [address], 3 09:58:42 Patient TargetsNo targets recorded. Patient Instructions Encounter Date Encounter Id Patient Instructions Last Modified By Organization Details Last Modified Time 05/16/2024 [id number] counseled, she has a therapist . Continue using strategies . get book Finding Your Strength......... get BP rechecked on own ivan Not available 06/10/2024 14:01:30 Reason for Referral Alliance Director Referral for Sc reening for malignant neoplasm of cervix Please call patient to schedule an appointment. Thank you. Referring Physician: Shivam Brunner, Family Medicine, Encounter Date: 02/22/2024 Problems Name Problem SNOMED Code Status Onset Date Resolution Date Notes Provider Name and Address Organization Details Recorded Time Vaginitis 77553652 Active 2022 Not Available [facility] 3 06:50:06 Prediabete s 420631370 Active 2022 Not Available [facility] 3 06:50:06 Vitamin D deficiency 27241235 Active 2022 Not Available [facility] 3 06:50:06 Irritable bowel syndrome 86788172 Active 2022 Not Available [facility] 3 06:50:06 Screening for malignant neoplasm of breast Active 2022 Not Available [facility] 3 06:50:06 Nausea 697032351 Active 2022 Not Available [facility] 3 06:50:06 Screening for malignant neoplasm of cervix Active 2022 Not Available [facility] 3 06:50:06 Acid reflux 327299240 Active 2022 Not Available [facility] 3 06:50:06 Irritable bowel syndrome characteri zed by constipati on 004606560 Active 2022 Not Available [facility] 3 06:50:06 Pityriasis alba 985738918 Active 2022 Not Available [facility] 3 06:50:06 Well controlled type 2 diabetes mellitus 469049678 Active 2022 Not Available [facility] 3 06:50:06 Multinodul ar goiter 009797872 Active 2022 Not Available [facility] 3 06:50:06 Tinea corporis 49340068 Active 2022 Not Available [facility] 3 06:50:06 Post-acute COVID-19 5616290581 Active 2022 Not Available [facility] 3 06:50:06 Abscess 831430351 Active 2022 Not Available [facility] 3 06:50:06 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 872358623 Active 2022 [facility] Sp[facility]ler [address], [address], [place], [address] , [place] [facility] 3 15:37:48 Chronic idiopathic constipati on 63358200 Active 2023 ALEX Spangler [address], [address], [place], [address] , [email or web address] [place] [facility] 4 11:21:51 Contracept ion care Active 2023 ALEX Spangler [address], [address], [place], [address] , [email or web address] [place] [facility] 4 08:50:31 Adult health examinatio n Active 2023 ALEX Spangler [address], [address], [place], [address] , [email or web address] [place] [facility] 4 12:44:33 Liver enzymes level above reference range 004123345 Active 2023 ALEX Spangler [address], [address], [place], [address] , [email or web address] [place] [facility] 4 12:48:23 Insomnia 894407017 Active 2023 ALEX Spangler [address], [address], [place], [address] , [place] [facility] 4 15:37:10 Anxiety 04806091 Active 2023 ALEX Spangler [address], [address], [place], [address] , [place] [facility] 4 15:39:30 Fibromyalg ia 707706917 Active 2019 Not Available [facility] 3 06:50:06 Sciatica 91839534 Active Not Available [facility] 3 06:50:06 Morbid obesity 504363007 Active 2021 Not Available [facility] 3 06:50:06 Low back pain 627649018 Active Not Available [facility] 3 06:50:06 Lymphadeno bartolome 46395578 Active Not Available [facility] 3 06:50:06 Knee pain Active Not Available [facility] 3 06:50:06 Osteoarthr itis of right knee joint 0537001345497 00 Active 2021 Not Available [facility] 3 06:50:06 Arthritis 8688753 Active 2021 Not Available [facility] 3 06:50:06 Hypertensi ve disorder 51511902 Active 2019 Not Available [facility] 3 06:50:06 Hypothyroi dism 10010066 Active 2019 Not Available [facility] 3 06:50:06 Obesity 888039274 Active Not Available [facility] 3 06:50:06 Pain of right knee joint 4200248044016 00 Active 2021 Not Available [facility] 3 06:50:06 Chronic fatigue syndrome 87927315 Active 2019 Not Available [facility] 3 06:50:06 Hyperlipid emia 46367264 Active Not Available [facility] 3 06:50:06 Carpal tunnel syndrome 12194977 Active Not Available [facility] 3 06:50:06 Diabetes mellitus 86936378 Active Not Available [facility] 3 06:50:06 Sleep apnea 21604434 Active 2019 Not Available [facility] 3 06:50:06 Obstructiv e sleep apnea syndrome 64259315 Active 2019 Not Available [facility] 3 06:50:06 Irregular periods 73694109 Active Not Available [facility] 3 06:50:06 Fatigue 24466813 Active Not Available [facility] 3 06:50:06 Uterine leiomyoma 68472060 Active Not Available [facility] 3 06:50:06 Problem Notes None recorded. Procedures Surgical History Date Name Laterality Status Provider Name and Address Organization Details Recorded Time Knee completed Not Available [facility] 07/2022 04:29:31 Breast Biopsy completed Not Available [facility] 09/07/2022 04:29:31 completed Not Available [place] [address] 09/07/2022 04:29:31 laparoscopic salpingo-oophorec josef completed Not Available [facility] 09/07/2022 04:29:31 Dilation and curettage completed Not Available [facility] 09/07/2022 04:29:31 Imaging Results None recorded. Procedure Notes None recorded. Medical Equipment None Reported. Allergies Allergen ID Allergen Name Allergen Category Reaction Reaction Severity Criticality Documentation Date Start Date Code Code System Note Provider Name and Address Organization Details Recorded Time 6519 latex environme nt,medica tion other mild Not available 09/07/2022 41790 91 RxNorm Pt state d mild sensi tivit y Not Available [facility] 3 04:39:16 6520 acetamino phen / hydrocodo ne medicatio n hives moderate Not available 09/07/2022 26837 2 RxNorm SOB Not Available [facility] 3 04:39:16 6521 tramadol medicatio n Not available Not available Not available 09/07/2022 19968 RxNorm Not Available [facility] 3 04:39:16 Medications Name Sig Start Date Stop Date Status Note LastModified by Organization Details LastModified Time cyclobenz aprine 10 mg tablet TAKE 1 TABLET BY MOUTH THREE TIMES DAILY NEEDED 12/26 completed Not Available Not Available Not Available buspirone 5 mg tablet Take 1 tablet twice a day by oral route after meal(s) for 30 days. active Not Available Not Available No t Available bupropion HCl SR 150 mg tablet,12 hr sustained -release TAKE 1 TABLET BY MOUTH TWICE DAILY AROUND THE CLOCK 04/08 completed Not Available Not Available Not Available carvedilo l 25 mg tablet TAKE 1 TABLET BY MOUTH TWICE DAILY WITH MEALS active Not Available Not Available No t Available doxycycli ne hyclate 100 mg capsule TAKE 1 CAPSULE BY MOUTH TWICE DAILY WITH FOOD UNTIL RESOLVED . AT ONSET OF FLARE TAKE TWICE DAILY FOR 5-7 DAYS AT A TIME NEEDED. DO NOT LIE DOWN FOR 1 HOUR AFTER TAKING MEDICATI ON 02/21 completed Not Available Not Available Not Available ketoconaz ole 2 % shampoo LET SIT FOR 3-5 MINUTES THEN RINSE. USE WITH EVERY SHOWER INITIALL Y THEN NEEDED FOR FLARES active Not Available Not Available No t Available clindamyc in HCl 300 mg capsule TAKE 1 CAPSULE BY MOUTH EVERY 6 HOURS active Not Available Not Available No t Available azithromy beba 250 mg tablet TAKE DIRECTED active Not Available Not Available No t Available ibuprofen 800 mg tablet TAKE 1 TABLET BY MOUTH EVERY 6 HOURS active Not Available Not Available No t Available Cytotec 200 mcg tablet Take 2 tablets by oral route at bedtime for 1 day. active Not Available Not Available No t Available fluconazo le 150 mg tablet TAKE 1 TABLET BY MOUTH ONCE DAILY 09/28 completed Not Available Not Available Not Available Synthroid 200 mcg tablet Take 1 tablet(s ) every day by oral route in the morning for 30 days. 05/15 completed Not Available Not Available Not Available hydrocodo ne 5 mg-acetam inophen 325 mg tablet TAKE 1 TO 2 TABLETS BY MOUTH EVERY 4 TO 6 HOURS MAX OF 10 TABLETS PER DAY active Not Available Not Available No t Available Synthroid 150 mcg tablet Take 1 tablet every day by oral route in the morning for 90 days. 2024 active Not Available Not Available Not Avai lable methylphe nidate 20 mg tablet Take 1 tablet twice a day by oral route. 06/26 completed Not Available Not Available Not Available meloxicam 15 mg tablet TAKE 1 TABLET EVERY DAY 07/31 completed Not Available Not Available Not Available prednison e 20 mg tablet Take 2 tabs PO twice daily for 2 days; 1 tab PO twice daily for 5 days; 1/2 tab PO twice daily for 2 days; 1/2 tab PO once for 1 day. TAKE 2ND DOSE EVERYDAY AT NOON-10 DAY COURSE 04/29 completed Not Available Not Available Not Available acetamino phen 300 mg-codein e 15 mg tablet 04/08 completed Not Available Not Available Not Available potassium chloride ER 10 mEq tablet,ex tended release TAKE 1 TABLET BY MOUTH TWICE DAILY AROUND THE CLOCK 05/15 completed Not Available Not Available Not Available phentermi ne 37.5 mg tablet 1 1/2 tabs po daily 06/26 completed Not Available Not Available Not Available amlodipin e 5 mg tablet Take 1 tablet every day by oral route. active Not Available Not Available No t Available ciproflox acin 500 mg tablet TAKE 1 TABLET BY MOUTH EVERY 12 HOURS FOR 10 DAYS 02/21 completed Not Available Not Available Not Available sulfameth oxazole 800 mg-trimet hoprim 160 mg tablet Take 1 tablet every 12 hours by oral route. 04/08 completed Not Available Not Available Not Available omeprazol e 40 mg capsule,d elayed release TAKE 1 CAPSULE BY MOUTH ONCE DAILY. TAKE 30 MINUTES BEFORE FOOD. active Not Available Not Available No t Available liothyron ine 5 mcg tablet TAKE 1 TABLET BY MOUTH IN THE MORNING AND 1 AT BEDTIME 12/26 completed Not Available Not Available Not Available tramadol 50 mg tablet 1-2 tabs every 6 hours active Not Available Not Available No t Available triamcino lone acetonide 0.1 % topical cream APPLY CREAM EXTERNAL LY TO AFFECTED AREA THREE TIMES DAILY NEEDED ITCHING 04/08 completed Not Available Not Available Not Available fenofibra te micronize d 134 mg capsule TAKE 1 CAPSULE BY MOUTH ONCE DAILY AT BEDTIME active Not Available Not Available No t Available Depo-Medr ol 80 mg/mL suspensio n for injection Take 1 mL by injectio n route. 2023 active Not Available Not Available Not Avai lable Synthroid 175 mcg tablet TAKE 1 TABLET BY MOUTH ONCE DAILY IN THE MORNING FOR 90 DAYS 03/27 completed Not Available Not Available Not Available Marcaine 0.5 % (5 mg/mL) injection solution Take 3 mL by injectio n route. 2023 active Not Available Not Available Not Avai lable amoxicill in 875 mg tablet TAKE 1 TABLET BY MOUTH EVERY 12 HOURS FOR 7 DAYS 09/28 completed Not Available Not Available Not Available oxycodone -acetamin ophen 10 mg-325 mg tablet TAKE 1 TO 2 TABLETS BY MOUTH EVERY 4 TO 6 HOURS active Not Available Not Available No t Available Synthroid 25 mcg tablet Take 1 tablet every day by oral route in the morning for 30 days. 06/08 completed Not Available Not Available Not Available Kenalog 10 mg/mL suspensio n for injection Take 2 mL by injectio n route. 2023 active [facility]: [phone] Not Available Not Available Not Available dexametha sone 1 mg tablet Take 1 tablet as needed by oral route as directed for 1 day. active take at 11 pm night before 8 am cortisol level Not Available Not Available Not Available nortripty line 10 mg capsule TAKE 1 TO 2 CAPSULES BY MOUTH AT BEDTIME NEEDED active Not Available Not Available No t Available cyanocoba nichol (vit B-12) 1,000 mcg/mL injection solution Inject 1 mL every week by intramus cular route in the morning for 30 days. 05/15 completed Not Available Not Available Not Available neomycin- polymyxin -dexameth 3.5 mg/mL-10, 000 unit/mL-0 .1% eye drops INSTILL 2 DROP INTO AFFECTED EYE(S) EVERY 6-8 HOURS 10/13 completed Not Available Not Available Not Available dexametha sone 4 mg tablet TAKE 1 TABLET BY MOUTH NOW, 1 BEFORE BED, AND 1 DAILY FOR 3 DAYS active Not Available Not Available No t Available clotrimaz ole-betam ethasone 1 %-0.05 % topical cream APPLY CREAM TOPICALL Y TO AFFECTED AND SURROUND ING AREA(S) TWICE DAILY IN THE MORNING AND IN THE EVENING FOR 2 WEEKS 03/27 completed Not Available Not Available Not Available methylphe nidate ER 20 mg tablet,ex tended release Take 1 tablet every day by oral route. 05/15 completed Not Available Not Available Not Available guanfacin e 1 mg tablet TAKE 1 TABLET BY MOUTH NIGHTLY active Not Available Not Available No t Available BD Luer-Susan Syringe 3 mL 25 gauge x 1 11/11 completed Not Available Not Available Not Available gabapenti n 300 mg capsule TAKE 1 CAPSULE BY MOUTH THREE TIMES DAILY 2023 active Not Available Not Available Not Avai lable diclofena c sodium 75 mg tablet,de layed release Take 1 tablet by mouth twice daily 2024 active Not Available Not Available Not Avai lable codeine 10 mg-guaife nesin 100 mg/5 mL oral liquid TAKE 10 ML BY MOUTH EVERY 4-6 HOURS NEEDED 02/21 completed Not Available Not Available Not Available mupirocin 2 % topical ointment APPLY OINTMENT TOPICALL Y THREE TIMES DAILY FOR 7 DAYS 03/27 completed Not Available Not Available Not Available furosemid e 20 mg tablet Take 1 tablet every day by oral route. 05/15 completed Not Available Not Available Not Available gabapenti n 100 mg capsule TAKE 1 CAPSULE BY MOUTH 4 TIMES DAILY 04/27 completed Not Available Not Available Not Available ergocalci ferol (vitamin D2) 1,250 mcg (50,000 unit) capsule TAKE 2 CAPSULES BY MOUTH EVERY OTHER WEEK ALTERNAT ING WITH ONE CAPSULE WEEKLY 2024 active Not Available Not Available Not Avai lable albuterol sulfate HFA 90 mcg/actua tion aerosol inhaler INHALE 1 TO 2 PUFFS BY MOUTH EVERY 4 HOURS NEEDED FOR WHEEZING 02/21 completed Not Available Not Available Not Available ferrous sulfate 325 mg (65 mg iron) tablet,de layed release Take 1 tablet every day by oral route in the morning for 30 days. 11/11 completed Not Available Not Available Not Available ketoconaz ole 2 % topical cream APPLY 1-2 GRAMS TOTAL TOPICALL Y TO AFFECTED AREA ONCE DAILY TO TWICE DAILY UNTIL CLEAR AND THEN NEEDED THERE AFTER FOR FLARES active Not Available Not Available No t Available ondansetr on 4 mg disintegr ating tablet DISSOLVE 1 TABLET IN MOUTH THREE TIMES DAILY NEEDED 2024 active Not Available Not Available Not Avai lable losartan 100 mg tablet TAKE 1 TABLET BY MOUTH ONCE DAILY 11/23 completed Not Available Not Available Not Available fluticaso ne propionat e 50 mcg/actua tion nasal spray,rodo pension USE 2 SPRAY(S) IN EACH NOSTRIL ONCE DAILY 04/29 completed Not Available Not Available Not Available metformin ER 500 mg tablet,ex tended release 24 hr TAKE 2 TABLETS BY MOUTH ONCE DAILY IN THE MORNING 04/08 completed Not Available Not Available Not Available dicyclomi ne 10 mg capsule TAKE 1 CAPSULE BY MOUTH 4 TIMES DAILY 30 MINUTES BEFORE MEAL(S) AND AT BEDTIME active Not Available Not Available No t Available duloxetin e 20 mg capsule,d elayed release TAKE 1 CAPSULE BY MOUTH TWICE DAILY 04/27 completed Not Available Not Available Not Available duloxetin e 30 mg capsule,d elayed release TAKE 1 CAPSULE BY MOUTH THREE TIMES DAILY 04/08 completed Not Available Not Available Not Available duloxetin e 60 mg capsule,d elayed release Take 1 capsule by mouth twice daily active Not Available Not Available No t Available BD Ultra-Fin e Mini Pen Needle 31 gauge x 3/16 USE 1 ONCE DAILY DIRECTED active Not Available Not Available No t Available losartan 100 mg-hydroc hlorothia zide 12.5 mg tablet TAKE 1 TABLET BY MOUTH ONCE DAILY active Not Available Not Available No t Available naltrexon e 1 mg take 2 every day 04/20 completed Not Available Not Available Not Available Wellbutri n SR 150 01/07 completed Not Available Not Available Not Available lidocaine (PF) 5 mg/mL (0.5 %) injection solution In office injectio n administ ered by the provider 05/18 completed Not Available Not Available Not Available hydrochlo rothiazid e 12.5 mg tablet TAKE 1 TABLET BY MOUTH ONCE DAILY 11/23 completed Not Available Not Available Not Available Savella 12.5 mg tablet TAKE 1 TABLET BY MOUTH TWICE DAILY 09/28 completed Not Available Not Available Not Available Tirosint 13 mcg capsule Take 1 capsule every day by oral route in the morning for 30 days. 06/08 completed Not Available Not Available Not Available [facility] 11/16 completed Not Available Not Available Not Available Methocel K 100 M 23 % and 10 % powder 05/15 completed Not Available Not Available Not Available ropivacai ne (PF) 5 mg/mL (0.5 %) injection solution in office 2022 active Not Available Not Available Not Avai lable Camrese Lo 0.1 mg-20 mcg (84)/10 mcg (7) tablets,3 month dose pack TAKE 1 TABLET BY MOUTH ONCE DAILY IN THE MORNING active Not Available Not Available No t Available Korlym 300 mg tablet Take 1 tablet twice a day by oral route before meals for 30 days. 11/14 completed DENIED.. . Not Available Not Available Not Available Dasron (28) 1 mg-35 mcg tablet TAKE ONE TABLET BY MOUTH ONCE DAILY 08/28 completed Not Available Not Available Not Available Linzess 145 mcg capsule Take 1 capsule every day by oral route for 30 days. 02/21 completed Not Available Not Available Not Available Victoza 2-Hans 0.6 mg/0.1 mL (18 mg/3 mL) subcutane ous pen injector INJECT 0.6 SUBCUTAN EOUSLY ONCE DAILY WITH LARGEST MEAL FOR ONE WEEK THEN 1.2 MG SUBCUTAN EOUSLY ONCE DAILY FOR 1 2 WEEKS THEN INCREASE TO 1.8 12/04 completed Not Available Not Available Not Available Fluvirin [id number] 45 mcg (15 mcg x 3)/0.5 mL intramusc ular suspensio n TO BE ADMINIST ERED BY PHARMACI ST FOR IMMUNIZA TION active Not Available Not Available No t Available armodafin il 200 mg tablet Take 1 tablet by mouth once daily active Not Available Not Available No t Available Afluria 2697-0510 (PF) 45 mcg (15 mcg x 3)/0.5 mL intramusc ular syringe TO BE ADMINIST ERED BY PHARMACI ST FOR IMMUNIZA TION active Not Available Not Available No t Available Afluria 7035-7633 (PF) 45 mcg (15 mcg x 3)/0.5 mL IM syringe TO BE ADMINIST ERED BY PHARMACI ST FOR IMMUNIZA TION 10/13 completed Not Available Not Available Not Available Fluarix Quad (PF) 60 mcg (15 mcg x 4)/0.5 mL IM syringe TO BE ADMINIST ERED BY IMMUNIZI NG PHARMACI ST 10/13 completed Not Available Not Available Not Available Trulance 3 mg tablet TAKE 1 TABLET BY MOUTH ONCE DAILY DIRECTED 2024 active Not Available Not Available Not Avai lable Ozempic 0.25 mg or 0.5 mg (2 mg/1.5 mL) subcutane ous pen injector Inject 0.5 mg every week by subcutan eous route at dinner for 90 days. 05/18 completed Not Available Not Available Not Available Mounjaro 7.5 mg/0.5 mL subcutane ous pen injector INJECT 7.5MG EVERY WEEK SUBCUTAN EOUSLY 09/28 completed Not Available Not Available Not Available Mounjaro 5 mg/0.5 mL subcutane ous pen injector Inject 5 mg every week by subcutan eous route. 12/26 completed Not Available Not Available Not Available Mounjaro 15 mg/0.5 mL subcutane ous pen injector Inject 15 mg every week by subcutan eous route. 04/29 completed Not Available Not Available Not Available Mounjaro 10 mg/0.5 mL subcutane ous pen injector Inject 10 mg every week by subcutan eous route. 02/21 completed dose adjustme nt Not Available Not Available Not Available Mounjaro 12.5 mg/0.5 mL subcutane ous pen injector INJECT 1 SYRINGE SUBCUTAN EOUSLY ONCE A WEEK 2024 active Not Available Not Available Not Avai lable Vitals Date Recorded Body height Provider Name an d Address Organization Details Last Updated DateTime 10/23/2023 160.02 cm Italia Almazan CNA [facility] [employer] 10/23/2023 15:11:12 Date Recorded Body height Body mass index (BMI) Body weight Body temperature Heart rate Oxygen saturation Oxygen saturation in Arterial blood by Pulse oximetry Respiratory rate Systolic And Diastolic Provider Name and Address Organization Details Last Updated DateTime 160.02 cm 52.4 kg/m2 891494. 34 g 97.7 [degF] 78 /min 98 % 98 % 16 /min 136/90 mm[Hg] Diamond Sparrow RN [facility] [employer] 12:40:50 Date Recorded Body height Body mass index (BMI) Body weight Body temperature Heart rate Oxygen saturation Oxygen saturation in Arterial blood by Pulse oximetry Systolic And Diastolic Provider Name and Address Organization Details Last Updated DateTime 160.02 cm 51.5 kg/m2 337619. 38 g 98.1 [degF] 91 /min 98 % 98 % 118/86 mm[Hg] Briana Mendoza MA [facility] [employer] 16:26:28 Date Recorded Body height Body mass index (BMI) Body weight Body temperature Heart rate Oxygen saturation Oxygen saturation in Arterial blood by Pulse oximetry Systolic And Diastolic Provider Name and Address Organization Details Last Updated DateTime 160.02 cm 51 kg/m2 062684. 6 g 97.8 [degF] 102 /min 97 % 97 % 122/92 mm[Hg] Diamond Sparrow RN [facility] 15:25:02 Date Recorded Body height Provider Name an d Address Organization Details Last Updated DateTime 07/05/2023 160.02 cm SUZY Parrish [facility] 07/05/2023 09:37:38 Social History Question Answer Notes LastModified by Organizat ion Details LastModified Time Tobacco Smoking Status Former Smoker quit 8 yrs ago Karissa monson [facility] 09/28/2022 11:39:51 Do You Have An Advance Directive? No [id number] Information not available 09/07/2022 What Is Your Level Of Caffeine Consumption? Heavy [id number] Information not available 09/07/2022 How Much Tobacco Do You Chew? None [id number] Information not available 09/07/2022 In The 14 Days Before Symptom Onset, Have You Had Close Contact With A Laboratory-confir med COVID-19 While That Case Was Ill? No [email or web address] Information not available 09/28/2022 In The 14 Days Before Symptom Onset, Have You Had Close Contact With A Person Who Is Under Investigation For COVID-19 While That Person Was Ill? No Information not available 09/28/2022 What Type Of Diet Are You Following? REGULAR MIGRATION.[id number] Information not available 09/07/2022 Which Illicit Or Recreational Drugs Have You Used? None Information not available 09/28/2022 Do You Have An Electrostatic Air Filter? No [email or web address] Information not available 09/28/2022 When Did You Quit Smoking? 6-10yearssi [email or web address] [email or web address] Information not available 09/28/2022 Do You Have A Humidifier? No [email or web address] Information not available 09/28/2022 Do You Have Moisture Problems In Your Home? Yes [email or web address] Information not available 09/28/2022 What Was The Date Of Your Most Recent Tobacco Screening? 04/29/2024 Information not available 04/29/2024 How Many Children Do You Have? 1 [email or web address] Information not available 09/28/2022 Do You Have Any Pets? Yes [email or web address] Information not available 09/28/2022 Do You Use Your Seat Belt Or Car Seat Routinely? Yes Information not available 04/29/2024 At What Age Did You Start Smoking Tobacco? 21 [email or web address] Information not available 09/28/2022 Are You Passively Exposed To Smoke? Yes [email or web address] Information no t available 09/28/2022 How Much Tobacco Do You Smoke? 2 PPD MIGRATION.[id number] Information not available 09/07/2022 Do You Use Sunscreen Routinely? Yes Information not available 04/29/2024 How Many Years Have You Smoked Tobacco? 10 [email or web address] Information not available 09/28/2022 Have You Recently Traveled Abroad? No Information not available 04/29/2024 Sex: Unknown Functional Status Question Answer Note LastModified by Organizat ion Details LastModified Time What is your level of alcohol consumption? None [id number] Information not available 09/07/2022 Do you or have you ever used smokeless tobacco? Never used smokeless tobacco MIGRATION.[id number] Information not available 09/07/2022 Have you been exposed to chemicals or toxins? 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 Never used electronic cigarettes Information not available 09/28/2022 What is your exercise level? None MIGRATION.[id number] Information not available 09/07/2022 Mental Status Question Answer Note LastModified by Organization D etails LastModified Time Do you feel stressed (tense, restless, nervous, or anxious, or unable to sleep at night)? [id number] Information not available 04/29/2024 Family History Relationship Description Onset Age of this Age Resolved Age Notes LastModified by Organization Details LastModified Time Father Hypertensive disorder [id number] Not available 09/07/2022 04:29:33 Maternal Grandfather Hypertensive disorder [id number].105 [id number] Not available 09/07/2022 04:29:33 Maternal Grandmother Hypertensive disorder [id number] [id number] Not available 09/07/2022 04:29:33 Mother Hypertensive disorder [id number].133 [id number] Not available 09/07/2022 04:29:33 Mother Heart disease [id number] [id number] Not available 09/07/2022 04:29:33 Mother Diabetes mellitus MIGRATION.146 [id number] Not available 09/07/2022 04:29:33 Mother Family history of malignant neoplasm [email or web address] Not available 09/28 11:39:50 Mother Pulmonary embolism [email or web address] Not available 09/28 11:39:50 Paternal Grandfather Hypertensive disorder MIGRATION.440 [id number] Not available 09/07/2022 04:29:33 Paternal Grandmother Hypertensive disorder MIGRATION.331 [id number] Not available 09/07/2022 04:29:33 Notes:Father- Thyroid Proble ms Medical History Condition Response BLINDNESS N KIDNEY STONES N MRSA N CARPAL TUNNEL SYNDROME N LUNG DISEASE/DISORDER N HISTORY OF DRUG ABUSE N COPD N RADIATION / CHEMOTHERAPY N SPORTS INJURY N ANKLE PAIN N BLOOD DISEASES N SCHIZOPHRENIA N SHINGLES N BOWEL PROBLEMS N SHOULDER PAIN N DEPRESSION (INCLUDING POST ) N STROKE/TIA N ULCERS N KNEE PAIN N BENIGN PROSTATIC HYPERPLASIA N OBESITY N GERD/NAUSEA N ANEURYSM N URINARY/BLADDER/KIDNEY PROBLEMS N CORONARY ARTERY DISEASE (CAD) N ADDICTION CONCERNS N USE OF BLOOD THINNERS N SKIN PROBLEMS N EMPHYSEMA N MUSCLE,JOINT OR BONE PROBLEMS N DVT N STOMACH ULCERS N BLOOD CLOTS N USE OF NSAIDS N CONCUSSION OR SPINAL TRAUMA N NEUROPATHY N AIDS/HIV N FRACTURES N ELBOW PAIN N HYPERTENSION N TOURETTE'S N ANXIETY DISORDER N Metal allergy N BLOOD TRANSFUSION N ANEMIA/BLOOD DISORDER N BIPOLAR DISORDER N BRONCHITIS N OSTEOARTHRITIS N TUBERCULOSIS N FOOT PROBLEM N HEART VALVE DISORDERS N ALLERGIES/HAYFEVER N SOFT TISSUE INJURY N INFECTIOUS DISEASE N HEART ARRHYTHMIA N INSOMNIA N RHEUMATOID ARTHRITIS N HIGH CHOLESTEROL / HYPERLIPIDEMIA N EDEMA N CHRONIC PAIN SYNDROME N CAROTID BLOCKAGE N BACK / NECK PROBLEMS N HAVE YOU BEEN HOSPITALIZED OR SEEN IN [facility] IN THE PAST YEAR ? N BURSITIS N HERNIATED DISC N DIALYSIS N FIBROMYALGIA N OSTEOPOROSIS N ARTHRITIS Y NO SIGNIFICANT PAST MEDICAL HISTORY N PERIPHERAL NEUROPATHY N DIABETES, TYPE N HEARTBURN / REFLUX N HEPATITIS / LIVER DISEASE N GOUT N SLEEP DISORDER N ALZHEIMER'S DISEASE N HERPES N SEIZURES/EPILEPSY N HEADACHES/MIGRAINES N VASCULAR DISEASE N HIP PAIN N Blood Disorder N DIZZINESS N HEAD TRAUMA OR INJURY N HEART DISEASE/HEART PROBLEMS N MULTIPLE SCLEROSIS N CARDIAC ARRHYTHMIA N CANCER: SPECIFY N ANESTHESIA COMPLICATIONS N ATRIAL FIBRILLATION N AUTOIMMUNE DISEASE N Gynecological HistoryNo gynecological history recorded. Obstetrics History GPAL:G 0 P 0 0 0 0 Immunizations Vaccine Type Date Status Note Provider Nam e and Address Organization Details Recorded Time Influenza, split virus, quadrivalent, preservative 0 completed Not Available [facility] 04/14/2023 06:50:07 COVID-19, mRNA, LNP-S, PF, 30 mcg/0.3 mL dose 1 completed Not Available [facility] 04/14/2023 06:50:07 COVID-19, mRNA, LNP-S, PF, 30 mcg/0.3 mL dose 1 completed Not Available [facility] 04/14/2023 06:50:07 Past Encounters Encounter ID Performer Location Encounter Start Date Encounter Closed Date Diagnosis/Indication Diagnosis SNOMED-CT Code Diagnosis ICD10 Code Diagnosis Note [id number] Mariya King MD [facility] [place] [address] [facility] [place] [address] 11/09/2020 00:00:00 11/10/2020 09:45:06 [id number] Jamshid Mcfadden MD [facility] [place] [address] [place] [address] 11/11/2020 00:00:00 11/11/2020 18:48:51 [id number] Jamshid Mcfadden MD [facility] [place] [address] [place] [address] 11/16/2020 00:00:00 11/16/2020 14:19:03 [id number] Jamshid Mcfadden MD [facility] [place] [address] [place] [address] 12/04/2020 00:00:00 12/04/2020 09:16:54 [id number] Jamshid Mcfadden MD [facility] [place] [address] [place] [address] 12/25/2020 00:00:00 12/25/2020 09:29:32 [id number] Mariya King MD [facility] [place] [address] [place] [address] 12/30/2020 00:00:00 12/31/2020 05:51:55 [id number] S_Histor ic_Gateway S_[facility] Pulmonolo gy [place] [address] [place] [address] 01/07/2021 00:00:00 01/07/2021 14:50:14 [id number] Jamshid Mcfadden MD [facility] [place] [address] [place] [address] 01/13/2021 00:00:00 01/13/2021 14:55:15 [id number] Jamshid Mcfadden MD [facility] [place] [address] [place] [address] 03/10/2021 00:00:00 04/04/2021 13:34:15 [id number] Mariya King MD [facility]_[address] [place] [address] 11/01/2021 00:00:00 11/01/2021 19:47:26 [id number] Lidia Yun MD [facility] [place] [place] [address] [place] [address] 11/23/2021 00:00:00 11/23/2021 16:50:27 [id number] Jamshid Mcfadden MD [facility] [place] [address] [place] [address] 12/15/2021 00:00:00 12/15/2021 10:21:54 [id number] Mariya King MD [facility] Family [facility] [place] [address] [place] [address] 01/12/2022 00:00:00 01/12/2022 20:32:49 [id number] MD [facility] Edi prashant [address] [place] [address] [place] [address] 01/20/2022 00:00:00 01/20/2022 21:59:49 [id number] Mari[facility] Edi prashant [facility] [place] [address] 04/04/2022 00:00:00 04/04/2022 20:57:40 [id number] Jamshid Mcfadden MD [facility] [place] [address] [place] [address] 04/08/2022 00:00:00 04/08/2022 09:15:29 [id number] JOSE Maynard RejiMarkel Pul[facility] [place] [address] [place] [address] 04/27/2022 00:00:00 04/27/2022 16:46:04 [id number] [facility] [place] [address] [place] [address] [place] [address] 05/18/2022 00:00:00 05/18/2022 21:39:54 [id number] JOSE Maynard RejiMarkel [place] [place] [address] [place] [address] 06/17/2022 00:00:00 06/19/2022 14:15:17 [id number] Mariya King MD [facility] [address] [place] [address] [place] [address] 08/09/2022 00:00:00 08/09/2022 19:44:56 [id number] MD MARLEN [facility] [place] 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 If unable to fall asleep after 30 minutes, patient should get out of bed but should not engage in any activity that requires sustained mental alertness. -Maintain a regular bedtime and wake-up time even on weekends or days off of work.-Avoi d excessive naps during the daytime. If a nap is necessary, limit it to no more than 30minutes. -Minimize environmen simran noise, bright lights, and extremes in bedroom temperatur e.-Avoid alcohol, caffeinate d beverages, and nicotine products for at least 6 hours prior to bedtime.-A void strenuous exercise and large meals for at least 4 hours prior to bedtime.Di scussed reportable signs and symptomsRT C in 6 months Fibromyalgia 191719341 M 79.7 Contributo r to fatigue [id number] Mariya King MD [facility] Family Practice [place] [address] [facility] [place] [address] 12/07/2022 15:15:30 12/07/2022 15:58:33 Irritable bowel syndrome 52071148 K58.9 Screening for malignant neoplasm of breast 388725547 Z12.39 Nausea 019662206 R11.0 Screening for malignant neoplasm of cervix 342885803 Z12.4 [id number] Jamshid Mcfadden MD [facility] Ortho [place] [address] [place] [address] 12/26/2022 16:56:13 12/26/2022 17:58:16 Osteoarthritis of right knee joint 4862904144 01977 M17.11 [id number] Mariya King MD [facility] Family Practice [facility] [address] [facility] [place] [address] 01/04/2023 16:26:30 01/04/2023 16:47:51 Acid reflux 831831082 K21.9 Irritable bowel syndrome characterized by constipation 969440517 K58.1 If has diarrhea then hold trulance and use dicyclomin e Pityriasis alba 38657391 4 L30.5 [id number] Lidia Yun MD [facility] Endo [place] [address] [place] [address] 01/19/2023 14:08:57 01/19/2023 14:57:14 Well controlled type 2 diabetes mellitus 322614377 E11.9 A1C of 5.5% - continue on mounjaro 12.5 mg SQ once weekly. Patient has lost over 50 pounds since July and doing well. Her PCP is writing for her mounjaro at this time. Discussed carb counting and how to read food labels. Recommende d patient to utilize the diabetesfo [employer] from the ADA website to help with food preparatio n as this presents ideal carb content per meal so this will make carb counting much easier for patient. Recommende d she incorporat e natural insulin statistical secretary s such as pears, apples, cinnamon, sonny and sweet potatoes to help mobilize her endogenous insulin. Recommende d up to 150 minutes of moderate level activity/e xercise weekly. Hypothyroidism 42201251 E03.9 FT4 high normal range- will downtitrat e synthroid to 150 mcg daily. She was reminded to take her synthroid on empty stomach with glass of water and wait one hour to eat or have her coffee in morning and up to 4 hours if ever taking any heartburn or reflux medication s to help optimize absorption . Discussed paleo like diet with restrictio n of GMOs to help with energy and to optimize absorption of vitamins and minerals and reduce inflammati on. Multinodular goiter 2375 19725 E04.2 Will send for repeat thyroid ultrasound as she does have a palpable thyroid and repeat thyroid function panel to assess function. Need to rule out any evidence of new nodules along with change in architectu re or echotextur e of thyroid that would suggest chronic thyroiditi s/autoimmu ne changes. she is aware to complete this quickly so I will have chance to review and assess for changes due to resignatio n notice. Spent up to 25 minutes preparing to see the patient (eg, review of tests), obtaining and/or reviewing separately obtained history, performing a medically appropriat e examinatio n and evaluation , counseling and educating the patient, ordering medication s, tests, along with documentin g clinical informatio n in the electronic health record, independen tly interpreti ng results and communicat ing results to the patient. Patient can be followed by PCP - she/he is aware of my resignatio n and last day of April 21. If needed his/her PCP can refer patient to another endocrinol ogist in the area. All questions /concerns answered and refills necessary at visit today. [id number] Mariya King MD [facility] Family Practice [place] [address] [facility] [place] [address] 03/07/2023 16:27:38 03/07/2023 16:57:24 Irritable bowel syndrome characterized by constipation 209996271 K58.1 If has diarrhea then hold trulance and use dicyclomin e Tinea corporis 00636542 B35.4 Use clotrimazo le/betamet hasone Post-acute COVID-19 1119 650537 U09.9 Treat symptoms May RTW 03/08/23 Morbid obesity 808866875 E66.01 Will go back down to 10 mg of mounjaro since she was having GI upset with 12.5 mg [id number] Jamshid Mcfadden MD [facility] [place] 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 If unable to fall asleep after 30 minutes, patient should get out of bed but should not engage in any activity that requires sustained mental alertness. -Maintain a regular bedtime and wake-up time even on weekends or days off of work.-Avoi d excessive naps during the daytime. If a nap is necessary, limit it to no more than 30minutes. -Minimize environmen simran noise, bright lights, and extremes in bedroom temperatur e.-Avoid alcohol, caffeinate d beverages, and nicotine products for at least 6 hours prior to bedtime. -Avoid strenuous exercise and large meals for at least 4 hours prior to bedtime.Di scussed reportable signs and symptomsSh e should follow up in 1 year Fibromyalgia 282535403 M 79.7 Contributo r to fatigue [id number] Mariya King MD [facility] [place] [address] [facility] [place] [address] 04/10/2023 12:18:09 04/10/2023 12:56:50 Abscess 608402602 L02.91 right groin Osteoarthritis 729009942 M19.90 [id number] Jamshid Mcfadden MD [facility] [place] [place] [address] [place] [address] 07/05/2023 09:12:16 07/05/2023 10:05:40 Osteoarthritis of right knee joint 5823776000 82537 M17.11 [id number] Jovani Negrete MD [facility] [place] [address] [place] [address] 10/23/2023 15:07:52 10/23/2023 16:28:48 Osteoarthritis of right knee joint 0555332681 68073 M17.11 Pain of ri ght knee joint 3136059533 62465 M25.010 [id number] Matt Ba MD [facility] [address] [facility] [place] [address] 02/22/2024 12:30:53 02/22/2024 12:59:00 Adult health examination 847627805 Z00.00 Screening for malignant neoplasm of breast 346190825 Z12.39 Screening for malignant neoplasm of cervix 015741758 Z12.4 Vitamin D deficiency 347 77561 E55.9 Well contr olled type 2 diabetes mellitus 800734316 E11.9 Liver enzy mes level above reference range 710607712 R74.01 Hyperlipidemia 93705977 E78.5 Nausea 838024938 R11.0 Low back pain 380686709 M54.50 Acid reflux 924061404 K2 1.9 Carpal timbo vladislav syndrome 23949911 G56.03 Arthritis 3476882 M19.90 Chronic fa tigue syndrome 86084403 R53.82 Chronic id iopathic constipation 21186131 K59.04 Fibromyalgia 089421362 M 79.7 Hypertensive disorder 38 266757 I10 Hypothyroidism 48768876 E03.9 Irritable bowel syndrome characterized by constipation 811153586 K58.1 Obstructiv e sleep apnea syndrome 47515223 G47.33 Osteoarthr itis of right knee joint 5111690313 34146 M17.11 Sciatica 07378059 M54.30 Obesity 551719523 E66.9 [id number] Damaris Yi NP [facility] Pulmonolo gy [address] [place] [address] 04/29/2024 16:07:33 04/30/2024 15:19:17 Obstructive sleep apnea syndrome 97275775 G47.33 Study with AHI 24.2.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 If unable to fall asleep after 30 minutes, patient should get out of bed but should not engage in any activity that requires sustained mental alertness. -Maintain a regular bedtime and wake-up time even on weekends or days off of work.-Avoi d excessive naps during the daytime. If a nap is necessary, limit it to no more than 30minutes. -Minimize environmen simran noise, bright lights, and extremes in bedroom temperatur e.-Avoid alcohol, caffeinate d beverages, and nicotine products for at least 6 hours prior to bedtime.-A void strenuous exercise and large meals for at least 4 hours prior to bedtime.Di scussed reportable signs and symptomsSh e should follow up in 1 year Fibromyalgia [id number] M 79.7 Contributo r to fatigue [id number] Matt Ba MD [facility] Roxi jorge [address] [facility] [place] [address] 05/16/2024 15:05:36 05/16/2024 15:43:40 Fibromyalgia 082917026 M79.7 Insomnia 168845238 G47.0 0 Anxiety 65890506 F41.9 Hyperlipidemia 04438350 E78.5 Hypothyroidism 65820873 E03.9 Obesity 042311178 E66.9 Obstructiv e sleep apnea syndrome 10501242 G47.33 Vitamin D deficiency 347 54234 E55.9 Well contr olled type 2 diabetes mellitus [id number] E11.9 Health Concerns Section Related Observation LastModified by Organization Detai ls LastModified Time None Recorded Concern Status LastModified by Organization Details LastModified Time None Recorded Advance Directives Directive N: Payers Insurance Date Sequence Insurance Name Policy Number Policy Khan Covered Member ID Khan Member ID Guarantor Name 07/26/2024 1 [employer] [id number] Morena Marks [id number] Morena Marks Notes Date Note Type Note Provider Name and Address Organization Details Recorded Time 02/22/2024 text/html pain down both legs and left arm for 6 months , no trauma ALEX Spangler [address], [place], [address], [employer] 03/02/2024 16:16:26 04/29/2024 text/html CPAP F/UReported bypatient.LENYAlex hill is using CPAP and estimates 9 hours of PAP use nightly.; No problems with CPAP; mask does not leak; no trouble with sleep initiation; no problems with sleep maintenance; does not remove CPAP mask during the night; no snoring through the mask; no abdominal discomfort; no skin irritation; no ear pain; no ear pressure; no nasal congestion; sleep related symptoms have ; no memory loss;mask leaks;wakes up in the middle of the night with dry mouth;aerophagia ;no change in headachesNotes:s he notes has lost 100 pounds and is having trouble with the pressures and leaks-mask is no longer fitting well but still wears it Damaris Yi NP [address], [place], [address], [employer] 04/30/2024 08:53:59 05/16/2024 text/html she is stressed for no reason . 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 no si/hi ALEX Spangler [address], [employer], [place], [address], [employer] 06/10/2024 14:03:42 OBGyn Episode No OBEpisode recorded.
--- OUTSIDE RECORDS SUMMARY | 2025-01-09 18:39 | XMS_ITS | Referral Summary ---
Author Organization [facility] Address [address] [place] [id number] Care Team Providers Care Take Down Inspector Name Role Phone Mariya King MD Primary Care Provider [phone]- [phone] Allergies Active Allergy Reactions Criticality Noted Date [...] adult 07/2017 SOB (shortness of breath) 12/08/2017 Social History Tobacco Use Types Packs/Day Years Used Date Smoking Tobacco: Former Cigarettes Q uit: 2009 Smokeless Tobacco: Never Alcohol Use Standard Drinks/Week Comments Yes 0 (1 standard drink = 0.6 oz pur e alcohol) RARELY Comments Unknown Sex and Gender Information Value Date Recorded Sex Assigned at Not on file Legal Sex Female 11:58 PM DIRECTOR LEARNING AND DEVELOPMENT Gender Identity Female 08/23/2021 4:44 PM DIRECTOR LEARNING AND DEVELOPMENT Sexual Orientation Straight 08/23/2021 4: 44 PM DIRECTOR LEARNING AND DEVELOPMENT Last Filed Vital Signs Vital Sign Reading Time Taken Comments Blood Pressure 122/62 09/15/2023 3:20 PM DIRECTOR LEARNING AND DEVELOPMENT Pulse 86 09/15/2023 3:20 PM DIRECTOR LEARNING AND DEVELOPMENT Temperature 37 C (98.6 F) 11/28/2017 2:19 PM CDT Respiratory Rate 18 12/08/2017 3:07 PM CDT Oxygen Saturation 98% 09/15/2023 3:20 PM DIRECTOR LEARNING AND DEVELOPMENT Inhaled Oxygen Concentration - - Weight 138.9 kg (306 lb 4.8 oz) 09/15/2023 3:20 PM DIRECTOR LEARNING AND DEVELOPMENT Height 167.6 cm (5' 6) 09/15/2023 3:20 PM DIRECTOR LEARNING AND DEVELOPMENT Body Mass Index 49.44 09/15/2023 3:20 PM DIRECTOR LEARNING AND DEVELOPMENT Plan of Treatment Not on file Insurance [facility] Care Teams Take Down Inspector Relationship Specialty Start Date End Date Mariya King MD [address] [place] [address] [place] [address] PCP - General Family Medicine 11/30/17
[2025-01-09 18:46] VITALS: BP 152/89; PULSE 84; RESP 16; TEMP 36.4; O2SAT 97
--- OUTSIDE RECORDS SUMMARY | 2025-01-09 21:51 | XMS_ITS | Clinical Summary ---
Author Organization [facility] Care Team Providers Care Emt Dispatcher Name Role Phone Unavailable Primary Care Provider Unavailabl e Social History Tobacco Use Types Packs/Day Years Used Date Smoking Tobacco: Never Assessed Comments Unknown Sex and Gender Information Value Date Recorded Sex Assigned at Not on file Legal Sex Female 1:05 PM WANT AD SUPERVISOR Gender Identity Not on file Sexual Orientation [...]
--- OUTSIDE RECORDS SUMMARY | 2025-01-09 21:51 | XMS_ITS | Referral Summary ---
Author Organization [facility] Address [address] [place] [id number] Care Team Providers Care Trade Embalmer Name Role Phone Mariya King MD Primary Care Provider [phone] Allergies Active Allergy Reactions Criticality Noted Date [...] on file Legal Sex Female 11:58 PM TELEGRAPH SERVICE CLERK Gender Identity Female 08/23/2021 4:44 PM TELEGRAPH SERVICE CLERK Sexual Orientation Straight 08/23/2021 4: 44 PM TELEGRAPH SERVICE CLERK Last Filed Vital Signs Vital Sign Reading Time Taken Comments Blood Pressure 122/62 09/15/2023 3:20 PM TELEGRAPH SERVICE CLERK Pulse 86 09/15/2023 3:20 PM TELEGRAPH SERVICE CLERK Temperature 37 C (98.6 F) 11/28/2017 2:19 PM CDT Respiratory Rate 18 12/08/2017 3:07 PM CDT Oxygen Saturation 98% 09/15/2023 3:20 PM TELEGRAPH SERVICE CLERK Inhaled Oxygen Concentration - - Weight 138.9 kg (306 lb 4.8 oz) 09/15/2023 3:20 PM TELEGRAPH SERVICE CLERK Height 167.6 cm (5' 6) 09/15/2023 3:20 PM TELEGRAPH SERVICE CLERK Body Mass Index 49.44 09/15/2023 3:20 PM TELEGRAPH SERVICE CLERK Plan of Treatment Not on file Insurance [facility] Care Teams Trade Embalmer Relationship Specialty Start Date End Date Mariya King MD [address] [place] [address] [place] [address] PCP - General Family Medicine 11/30/17
--- OUTSIDE RECORDS SUMMARY | 2025-01-09 21:51 | XMS_ITS | Clinical Summary ---
Author Organization [facility] Address [address] [place] [id number] Care Team Providers Care Agricultural Sciences Professor Name Role Phone Mariya King MD Primary Care Provider +1- [phone] Allergies Active Allergy Reactions Criticality Noted Date [...] on file Legal Sex Female 11:58 PM ELIGIBILITY SPECIALIST Gender Identity Female 08/23/2021 4:44 PM ELIGIBILITY SPECIALIST Sexual Orientation Straight 08/23/2021 4: 44 PM ELIGIBILITY SPECIALIST Obstetrics History Last Filed Vital Signs Vital Sign Reading Time Taken Comments Blood Pressure 122/62 09/15/2023 3:20 PM ELIGIBILITY SPECIALIST Pulse 86 09/15/2023 3:20 PM ELIGIBILITY SPECIALIST Temperature 37 C (98.6 F) 11/28/2017 2:19 PM CDT Respiratory Rate 18 12/08/2017 3:07 PM CDT Oxygen Saturation 98% 09/15/2023 3:20 PM ELIGIBILITY SPECIALIST Inhaled Oxygen Concentration - - Weight 138.9 kg (306 lb 4.8 oz) 09/15/2023 3:20 PM ELIGIBILITY SPECIALIST Height 167.6 cm (5' 6) 09/15/2023 3:20 PM ELIGIBILITY SPECIALIST Body Mass Index 49.44 09/15/2023 3:20 PM ELIGIBILITY SPECIALIST Plan of Treatment Health Maintenance Due Date [...] 05/08/2020, 04/02/2019, 05/28/2016, Additional history exists Insurance [employer] [place] [employer] [place] Care Teams Agricultural Sciences Professor Relationship Specialty Start Date End Date Mariya King MD [facility] [place] [address] PCP - General Family Medicine 11/30/17
--- OUTSIDE RECORDS SUMMARY | 2025-01-09 21:51 | XMS_ITS | Clinical Summary ---
Author Organization [facility] Address [address] [place] [address] Phone Care Team Providers Care Piling Cutter Name Role Phone Unavailable Primary Care Provider [...] 10/20/2020 INFLUENZA VACCINE (#1) 2025 05/08/2020 Insurance [facility] BLUE ACCESS/TRUE BLUE PPO
--- OUTSIDE RECORDS SUMMARY | 2025-01-09 21:51 | XMS_ITS | Clinical Summary ---
Author Organization [facility] Address [address] [place] [address] Care Team Providers Care Grinding Mill Operator Name Role Phone Mariya Miguel MD Primary Care Provider [phone] Social History Tobacco Use Types Packs/Day Years [...] patient's age to complete this topic Insurance [facility] Care Teams Grinding Mill Operator Relationship Specialty Start Date End Date Mariya Miguel MD [address] [place] [address] PCP - General FAMILY PRACTICE 06/28/18
== END 2025-01-09 21:08 | disposition left against medical advice (07) ==
LOC: ANHED 21:49
PROVIDERS: PCP Physician Assistant
DX: R11.2 Nausea with vomiting, unspecified (principal)
CPT/HCPCS: 99199